=== PATIENT | female | born 1990 | race African-American/Black ===

== ENCOUNTER → 2016-10-30 | Emergency (ER) | payer MEDICAID ==
[~2016-10-30] MED LIST: BUTO1CRE PV; METR500T10 PO; POLY10O RIGHT EYE; PREN1CHW7 PO; VIST25CA PO
[2016-10-30 23:50] LABS: BLOOD, URINE NEG (NEG); COMMENT (UR) CULTURE INDICATED; CULTURE IF INDICATED CULTURE INDICATED; GLUCOSE,URINE NEG (NEG); KETONE, URINE 150 mg/dL (NEG); MUCUS URINE FEW /lpf (OCC); NITRITE,URINE NEG (NEG); SQUAMOUS EPITHELIAL CELL URINE 5 /hpf (0-5); TRIPLE PHOSPHATE CRYSTAL,URINE RARE /hpf; URINE COLOR YELLOW (YELLW/STRAW)
--- NOTE | 2016-10-31 00:05 | PD ---
HPI Chief Complaint Lower abdominal pain and urinary frequency Date Seen: October 30, 2016 Time Seen: 23:45 Travel History International Travel<30 Days: No Contact w/Intl Traveler<30Days: No Known Affected Area: No History of Present Illness HPI 25-year-old 3 para 1 AB 1 at 17 weeks by last menstrual period who presents with 3 days of lower abdominal pain and urinary frequency. She denies hematuria or dysuria. No vaginal discharge or bleeding. Para: 1 : 3 Miscarriage: 1 History Past Medical History Medical History: Denies Significant Hx Obstetric History Obstetric History One prior Past Surgical History Narrative Surgical Family History Family History: Negative Social History Alcohol Use: No Tobacco Use: Yes Substance Abuse: Yes (marijuana) Allergies-Medications (Allergen,Severity, Reaction): Coded Allergies: Lactose (Verified Adverse Reaction, Severe, 12/27/15) Home Meds Active Scripts Hydroxyzine Pamoate (Vistaril)25 Mg Cap25 Mg PO Q6HR #12 CAP FOR ITCHING Prov:Ailin Maya MD 12/27/15 Polymyxin/Trimethoprim (Polytrim Opth)10 Ml Soln1 Drop RIGHT EYE QID 7 Days Prov:Sarah Servin HEAD LOFT WORKER 12/07/15 Review of Systems Except as stated in HPI: all other systems reviewed are Neg Physical Exam Narrative GENERAL: Well-nourished, well-developed patient. SKIN: Warm and dry. HEAD: Normocephalic and atraumatic. EYES: No scleral icterus. No injection or drainage. ENT: No nasal drainage noted. Mucous membranes pink. Airway patent. NECK: Supple, trachea midline. No JVD. CARDIOVASCULAR: Regular rate and rhythm without murmurs, gallops, or rubs. RESPIRATORY: Breath sounds equal bilaterally. No accessory muscle use. ABDOMEN/GI: Abdomen soft, non-tender, bowel sounds present, no rebound, no guarding Gravid to [-] weeks size Fundal Height: [-] GENITOURINARY: FHT's: Category: [-] Baseline: [-140] Reactive: [-] Variability: [-] Decels: [-] EXTREMITIES: No cyanosis or edema. BACK: Nontender without obvious deformity. No CVA tenderness. NEUROLOGICAL: Awake and alert. Motor and sensory grossly within normal limits. Five out of 5 muscle strength in all muscle groups. Normal speech. Data Data Vital Signs Reviewed: Yes Orders Urinalysis - C+S If Indicated (10/30/16 23:14) Urine Culture (10/30/16 23:00) Labs Laboratory Tests Test 10/30/16 23:00 Urine Color YELLOW Urine Turbidity HAZY Urine pH 6.0 Urine Specific Larue 1.025 Urine Protein TRACE Urine Glucose (UA) NEG Urine Ketones 150 Urine Occult Blood NEG Urine Nitrite NEG Urine Bilirubin NEG Urine Urobilinogen 4.0 Urine Leukocyte Esterase LARGE Urine RBC 7 Urine WBC 16 Urine Squamous Epithelial 5 Cells Urine Triple Phosphate RARE Crystals Urine Mucus FEW Urine Yeast (Budding) RARE Microscopic Urinalysis Comment CULTURE INDICATED Date/Time Procedure Status Source Growth 10/30/16 23:00 Urine Culture Received Urine Clean Catch Pending MDM Medical Record Reviewed: No Narrative Course / MDM Assessment: 17 week intrauterine with probable UTI Plan: Empiric Macrobid for urinary tract infection with culture pending. [facility] was given to the patient to enroll in care as soon as possible. Diagnosis Diagnosis: Primary Impression: 17 weeks gestation of Additional Impression: Urinary tract infection Disposition: DISCHARGE HOME Joshua Peterson MD October 31, 2016 00:05
== END | disposition home or self-care (01) ==
LOC: HOBED 22:48
DX: O23.42 Unspecified infection of urinary tract in pregnancy, second trimester (principal); R10.30 Lower abdominal pain, unspecified; F12.90 Cannabis use, unspecified, uncomplicated; Z3A.17 17 weeks gestation of pregnancy; Z72.0 Tobacco use
CPT/HCPCS: 81001; 87086; 99282

== ENCOUNTER 2016-10-31 11:41 | Emergency (ER) | payer MEDICAID ==
[~2016-10-31 11:41] MED LIST changes: -BUTO1CRE PV; -METR500T10 PO; -PREN1CHW7 PO
[2016-10-31] MEDS ORDERED: LACTATED RINGER'S 1000 ML INJ 1,000 ML IV ONE (12:15)
[2016-10-31 12:28] LABS: HEMATOCRIT 30.3 % (35.0-46.0); MEAN CELL VOLUME 93.4 FL (80.0-100.0); MEAN CORPUSCULAR HEMOGLOBIN 31.9 PG (27.0-34.0); MEAN CORPUSCULAR HGB CONC 34.1 % (32.0-36.0); PLATELET COUNT 247 TH/MM3 (150-450); RED BLOOD COUNT 3.24 MIL/MM3 (4.00-5.30); RED CELL DISTRIBUTION WIDTH 12.5 % (11.6-17.2); REVIEW FLAG FINAL; WHITE BLOOD COUNT 7.7 TH/MM3 (4.0-11.0)
[2016-10-31 12:53] LABS: BLOOD, URINE NEG (NEG); COMMENT (UR) CULT NOT INDICATED; CULTURE IF INDICATED CULT NOT INDICATED; GLUCOSE,URINE NEG (NEG); KETONE, URINE 150 mg/dL (NEG); MUCUS URINE FEW /lpf (OCC); NITRITE,URINE NEG (NEG); PH, URINE 7.5 (5.0-8.5); SQUAMOUS EPITHELIAL CELL URINE 2 /hpf (0-5); URINE COLOR YELLOW (YELLW/STRAW)
[2016-10-31 12:54] LABS: AMPHETAMINE, URINE NEG (NEG); BARBITURATES, URINE NEG (NEG); COCAINE, URINE NEG (NEG)
[2016-10-31 12:58] LABS: BICARBONATE 25.2 MEQ/L (21.0-32.0); POTASSIUM 4.5 MEQ/L (3.5-5.1)
[2016-10-31] MEDS ORDERED: cefTRIAXone INJ 1,000 MG in SODIUM CHLORIDE 0.9% INJ 100 ML IV ONE (13:15)
--- NOTE | 2016-10-31 13:17 | PD ---
HPI Chief Complaint Right groin pain Date Seen: October 31, 2016 Time Seen: 12:10 Travel History International Travel<30 Days: No Contact w/Intl Traveler<30Days: No Known Affected Area: No History of Present Illness HPI 25-year-old who is 18 weeks 3 days comes in complaining of right lower quadrant pain deep in the pelvis radiating down to her groin. Patient was seen last night with a urinary tract infection and has not picked up her antibiotics at came in by [facility] last night and came in by [facility] again today. Patient denies fever denies urgency or frequency and denies abdominal pain. Patient has not yet initiated care. Para: 1 : 3 Miscarriage: 1 History Past Medical History Narrative Medical Urinary tract infections Anxiety and depression Obstetric History Obstetric History Spontaneous vaginal delivery Spontaneous miscarriage Past Surgical History Surgical History: No Previous Surgery Family History Family History: Negative Social History Alcohol Use: No Tobacco Use: No Substance Abuse: No Allergies-Medications (Allergen,Severity, Reaction): Coded Allergies: Lactose (Verified Adverse Reaction, Severe, 12/27/15) Home Meds Active Scripts Hydroxyzine Pamoate (Vistaril)25 Mg Cap25 Mg PO Q6HR #12 CAP FOR ITCHING Prov:Ailin Maya MD 12/27/15 Polymyxin/Trimethoprim (Polytrim Opth)10 Ml Soln1 Drop RIGHT EYE QID 7 Days Prov:Sarah Srevin 12/07/15 Review of Systems Except as stated in HPI: all other systems reviewed are Neg Physical Exam Narrative GENERAL: Well-nourished, well-developed patient. SKIN: Warm and dry. HEAD: Normocephalic and atraumatic. EYES: No scleral icterus. No injection or drainage. ENT: No nasal drainage noted. Mucous membranes pink. Airway patent. NECK: Supple, trachea midline. No JVD. CARDIOVASCULAR: Regular rate and rhythm without murmurs, gallops, or rubs. RESPIRATORY: Breath sounds equal bilaterally. No accessory muscle use. BREASTS: Bilateral exam showed no masses , no retractions, no nipple discharge. ABDOMEN/GI: Abdomen soft, minimal tenderness around the right inguinal ligament , bowel sounds present, no rebound, no guarding Gravid to [-18] weeks size Fundal Height: [-] GENITOURINARY: External Genitalia: intact and normal in appearance BUS glands: [Normal-] Cervix: [-Visually closed] no discharge noted vaginally Dilatation: [-] Effacement: [-] Station: [-] Presentation: [-] Membranes: [intact or ruptured] Uterine Contractions: [-Absent] FHT's: 152 by Doppler Category: [-] Baseline: [-] Reactive: [-] Variability: [-] Decels: [-] EXTREMITIES: No cyanosis or edema. BACK: Nontender without obvious deformity. No CVA tenderness. NEUROLOGICAL: Awake and alert. Motor and sensory grossly within normal limits. Five out of 5 muscle strength in all muscle groups. Normal speech. Data Data Orders Vital Signs (Adult) .ON ADMISSION (10/31/16 12:10) ^ Labor Status (10/31/16 12:10) Urinalysis - C+S If Indicated (10/31/16 12:10) Diet Liquid (10/31/16 Lunch) Cbc No Diff, Includes Plts (10/31/16 12:10) Basic Metabolic Panel (Bmp) (10/31/16 12:10) Ceftriaxone Inj (Rocephin Inj) (10/31/16 13:15) Drug Screen, Random Urine (10/31/16 12:10) Lactated Ringer's 1000 Ml Inj (Lr 1000 M (10/31/16 12:15) Labs Laboratory Tests Test 10/31/16 10/31/16 10/31/16 12:10 12:12 12:25 White Blood Count 7.7 Red Blood Count 3.24 Hemoglobin 10.3 Hematocrit 30.3 Mean Corpuscular Volume 93.4 Mean Corpuscular Hemoglobin 31.9 Mean Corpuscular Hemoglobin 34.1 Concent Red Cell Distribution Width 12.5 Platelet Count 247 Mean Platelet Volume 7.3 Urine Color YELLOW Urine Turbidity HAZY Urine pH 7.5 Urine Specific Tatums 1.017 Urine Protein TRACE Urine Glucose (UA) NEG Urine Ketones 150 Urine Occult Blood NEG Urine Nitrite NEG Urine Bilirubin NEG Urine Urobilinogen 2.0 Urine Leukocyte Esterase MOD Urine RBC 1 Urine WBC 3 Urine Squamous Epithelial 2 Cells Urine Mucus FEW Urine Trichomonas RARE Microscopic Urinalysis Comment CULT NOT INDICATED Urine Opiates Screen NEG Urine Barbiturates Screen NEG Urine Amphetamines Screen NEG Urine Benzodiazepines Screen NEG Urine Cocaine Screen NEG Urine Cannabinoids Screen POS Sodium Level 137 Potassium Level 4.5 Chloride Level 104 Carbon Dioxide Level 25.2 Anion Gap 8 Blood Urea Nitrogen 4 Creatinine 0.48 Estimat Glomerular Filtration 194 Rate Random Glucose 68 Calcium Level 8.9 MDM Medical Record Reviewed: Yes Plan 25-year-old female , has come to the hospital twice by [facility] in the past 4 hours but her examination is benign Agree with treatment for urinary tract infection and given her possible lack of transportation I have given her a stable dose of Rocephin 1 g here but she still needs to last picker her Macrobid and finished the dose Patient was given referral to the clinic to initiate care Patient has taken [facility] here to the hospital almost 14 times in the past 18 months, this patient which really benefit from consistent care, counseling, information, and support Diagnosis Diagnosis: Primary Impression: 17 weeks gestation of Additional Impression: Urinary tract infection during in second trimester, antepartum Disposition: 01 DISCHARGE HOME Farideh Acuna MD October 31, 2016 13:17
[2016-11-22] MEDS ORDERED: METR500T10 PO (15:16)
[2016-11-22] MEDS ORDERED: BUTO1CRE PV (15:16)
[2016-11-29] MEDS ORDERED: PREN1CHW7 PO (15:04)
== END 2016-10-31 13:47 | disposition home or self-care (01) ==
LOC: HOBED 11:41
DX: O23.42 Unspecified infection of urinary tract in pregnancy, second trimester (principal); Z3A.17 17 weeks gestation of pregnancy
CPT/HCPCS: 80048; 80307; 81001; 85027; 96374; 99284; J0696; J7120

== ENCOUNTER 2016-12-14 21:01 | Emergency (ER) | payer MEDICAID ==
[~2016-12-14 21:01] MED LIST changes: +BUTO1CRE PV; +METR500T10 PO; -POLY10O RIGHT EYE; +PREN1CHW7 PO; -VIST25CA PO
[2016-12-14] MEDS ORDERED: BUTA1CAP PO (21:46)
--- NOTE | 2016-12-14 21:46 | PD ---
HPI Chief Complaint Migraine headache Date Seen: Dec 14, 2016 Travel History International Travel<30 Days: No Contact w/Intl Traveler<30Days: No Known Affected Area: No History of Present Illness HPI 26-year-old black female at 24 weeks previous now complains of migraine headache all day, she has a history of migraine headaches the past and is taking NSAIDs for those, she is taken nothing while , she denies pain in the abdomen leakage of fluid or bleeding. Baby is active. heart rate tracing is reactive. No contractions seen Para: 1 : 2 History Past Medical History Narrative Medical Migraines Obstetric History Obstetric History 1 in the past Past Surgical History Narrative Surgical 1 Social History Alcohol Use: No Tobacco Use: No Substance Abuse: No Allergies-Medications (Allergen,Severity, Reaction): Coded Allergies: Lactose (Verified Adverse Reaction, Severe, 11/29/16) Home Meds Active Scripts Vit W/ Ferric Phospha (Vitafol Gummies 3.33-0.333-34.8 mg)1 Chw Chw3.33 Chew PO DAILY #60 CHEW Ref 1 Prov:Ellie Agarwal 11/29/16 Butoconazole Nitrate (One Dose (Gynazole-1)2 % Cre1 Applic PV HS #1 APPL Prov:Jaja Hickey 11/22/16 Metronidazole 500 Mg [id number] Mg PO BID #14 TAB Ref 0 Prov:Jaja Hickey 11/22/16 Review of Systems General / Constitutional: No: Fever, Weight Gain, Chills, Other Eyes: No: Diploplia, Blurred Vision, Visual changes, Pain, Photophobia HENT: No: Headaches, Vertigo, Lightheadedness Cardiovascular: No: Irregular Rhythm, Chest Pain or Discomfort, Palpitations, Tachycardia, Syncope, Varicosities, Edema, Cyanosis Respiratory: No: Cough, Short of Breath, Other Gastrointestinal: Nausea, No: Vomiting, Diarrhea Genitourinary: No: Decreased Urinary Output, Oliguria Musculoskeletal: No: Limited ROM, Weakness, Cramping, Edema, Pain Skin: No Rash, No Itching, No Dryness, No Lumps, No Change in Pigmentation, No Change in Nails, No Alopecia, No Lesions Neurologic: Headache, No: Weakness, Dizziness, Syncope, Focal Abnormalities, Coordination Problem, Slurred Speech, Seizures Psychiatric: No: Depression, Suicidal Ideations, Homicidal Ideation Endocrine: No: Heat Intolerance, Cold Intolerance, Polydipsia, Polyuria, Other Physical Exam Narrative GENERAL: Well-nourished, well-developed patient. SKIN: Warm and dry. HEAD: Normocephalic and atraumatic. EYES: No scleral icterus. No injection or drainage. PERRLA ENT: No nasal drainage noted. Mucous membranes pink. Airway patent. NECK: Supple, trachea midline. No JVD. CARDIOVASCULAR: Regular rate and rhythm without murmurs, gallops, or rubs. RESPIRATORY: Breath sounds equal bilaterally. No accessory muscle use. BREASTS: Bilateral exam showed no masses , no retractions, no nipple discharge. ABDOMEN/GI: Abdomen soft, non-tender, bowel sounds present, no rebound, no guarding Gravid to [24-] weeks size Fundal Height: [24-] Membranes: [intact ] Uterine Contractions: [none-] FHT's: Category: [-1] Baseline: [-133] Reactive: [-yes] Variability: [mod-] Decels: [-none] EXTREMITIES: No cyanosis or edema. BACK: Nontender without obvious deformity. No CVA tenderness. NEUROLOGICAL: Awake and alert. Motor and sensory grossly within normal limits. Five out of 5 muscle strength in all muscle groups. Normal speech. MDM Interpretation(s) 26-year-old white female at 24 weeks previous now with migraine headache all day and is taken nothing for it. She has no other complaints problems baby is active no bleeding leakage or contractions, heart rate tracing is reactive, no contractions seen Plan Planning of the patient IM shot of Demerol Phenergan 50 mg / 25 mg and a prescription for Fioricet for headache pain at home, she was instructed to take her medication and essentially she starts to feel a headache coming on and not letting to bad at all possible drink plenty of fluids stay hydrated and stay in the darkroom or quiet place to let the [headache improved Diagnosis Diagnosis: Primary Impression: 24 weeks gestation of Additional Impression: Migraine Disposition: 01 DISCHARGE HOME Condition: Stable Scripts Kzxwkixges-Xsmvowjtifovl-Xdsohuqs (Fioricet)50-300-40 Mg Cap1-2 Cap PO Q6H PRN ( HEADACHE) #20 CAP Ref 0 Prov:Kevin Sutton II, MD 12/14/16 Kevin Sutton II, MD Dec 14, 2016 21:46
[2016-12-14] MEDS ORDERED: MEPERIDINE HCL 50 MG/ML VIAL IM ONE (22:00)
[2016-12-14] MEDS ORDERED: PROMETHAZINE INJ 25 MG/ML VIAL IM ONE (22:00)
== END 2016-12-14 22:19 | disposition home or self-care (01) ==
LOC: HOBED 21:01
DX: O26.892 Other specified pregnancy related conditions, second trimester (principal); G43.909 Migraine, unspecified, not intractable, without status migrainosus; Z3A.24 24 weeks gestation of pregnancy
CPT/HCPCS: 96372; 99284; J2175; J2550

== ENCOUNTER 2016-12-31 01:28 | Emergency (ER) | payer MEDICAID ==
[~2016-12-31 01:28] MED LIST changes: +BUTA1CAP PO
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
== END 2016-12-31 03:58 | disposition home or self-care (01) ==
LOC: HOBED 01:28
DX: O9A.212 Injury, poisoning and certain other consequences of external causes complicating pregnancy, second trimester (principal); S39.91XA Unspecified injury of abdomen, initial encounter; Z3A.26 26 weeks gestation of pregnancy; W20.8XXA Other cause of strike by thrown, projected or falling object, initial encounter
CPT/HCPCS: 99284

== ENCOUNTER 2017-01-05 13:46 | Emergency (ER) | payer MEDICAID ==
--- NOTE | 2017-01-05 18:43 | PD ---
HPI Chief Complaint lower abdominal pain Date Seen: Jan 05, 2017 Travel History International Travel<30 Days: No Contact w/Intl Traveler<30Days: No Known Affected Area: No History of Present Illness HPI 26y/o at 27w3d who presented to the [facility] with reports of lower abdominal pain since yesterday evening. The pain was initially in the prior c/ s scar, which resolved after IVF. Pain is now near the umbilicus, no nausea/ vomiting. Last meal was at 11am, pt is requesting food. She denies vaginal bleeding or leakage of fluid with reports of active movements. care at [facility], care complicated by: 1. Previous c/s Para: 1 : 3 History Past Medical History Medical History: Denies Significant Hx Obstetric History Obstetric History 07/12/08 38w4d Primary c/s due to "poor pelvis," Male 7lb5oz Past Surgical History Narrative Surgical C/s as above Family History Family History: Negative Social History Alcohol Use: No Tobacco Use: No Substance Abuse: No Allergies-Medications (Allergen,Severity, Reaction): Coded Allergies: Lactose (Verified Adverse Reaction, Severe, 12/29/16) Home Meds Active Scripts Fgkeorwjvh-Kbvmzdowtivuf-Efuxlnvs (Fioricet)50-300-40 Mg Cap1-2 Cap PO Q6H PRN ( HEADACHE) #20 CAP Ref 0 Prov:Kevin Sutton II, MD 12/14/16 Vit W/ Ferric Phospha (Vitafol Gummies 3.33-0.333-34.8 mg)1 Chw Chw3.33 Chew PO DAILY #60 CHEW Ref 1 Prov:Ellie Agarwal 11/29/16 Butoconazole Nitrate (One Dose (Gynazole-1)2 % Cre1 Applic PV HS #1 APPL Prov:Jaja Hickey 11/22/16 Metronidazole 500 Mg [id number] Mg PO BID #14 TAB Ref 0 Prov:Jaja Hickey 11/22/16 Review of Systems Except as stated in HPI: all other systems reviewed are Neg Physical Exam Narrative GENERAL: Well-nourished, well-developed patient. SKIN: Warm and dry. HEAD: Normocephalic and atraumatic. EYES: No scleral icterus. No injection or drainage. ENT: No nasal drainage noted. Mucous membranes pink. Airway patent. NECK: Supple, trachea midline. No JVD. CARDIOVASCULAR: Regular rate and rhythm without murmurs, gallops, or rubs. RESPIRATORY: Breath sounds equal bilaterally. No accessory muscle use. BREASTS: Bilateral exam showed no masses , no retractions, no nipple discharge. ABDOMEN/GI: Abdomen soft, tender to palpation just near the umbilicus, bowel sounds present, no rebound, no guarding Gravid to 27 weeks size GENITOURINARY: External Genitalia: intact and normal in appearance VE deferred Uterine Contractions: irritability which resolved with IVF FHT's: Category: appropriate for gestational age EXTREMITIES: No cyanosis or edema. BACK: Nontender without obvious deformity. No CVA tenderness. NEUROLOGICAL: Awake and alert. Motor and sensory grossly within normal limits. Five out of 5 muscle strength in all muscle groups. Normal speech. Data Data Vital Signs Reviewed: Yes Orders Us Ob Repeat/Fu(Growth) (01/05/17 ) MDM Medical Record Reviewed: No Narrative Course / MDM 26y/o at 27w3d Plan -d/c home -f/u for routine care Diagnosis Diagnosis: Primary Impression: 24 weeks gestation of Additional Impression: Abdominal pain affecting , antepartum Disposition: 01 DISCHARGE HOME Condition: Good Juli Cortez MD Jan 05, 2017 18:43
== END 2017-01-05 19:02 | disposition home or self-care (01) ==
LOC: HOBED 13:50
DX: O26.892 Other specified pregnancy related conditions, second trimester (principal); R10.30 Lower abdominal pain, unspecified; Z3A.27 27 weeks gestation of pregnancy
CPT/HCPCS: 76816; 76817; 99284

== ENCOUNTER 2017-01-08 22:21 | Emergency (ER) | payer MEDICAID ==
--- NOTE | 2017-01-08 23:17 | PD ---
HPI Chief Complaint Patient complains of headache and migraine , contractions and urinary frequency Date Seen: Jan 08, 2017 Travel History International Travel<30 Days: No Contact w/Intl Traveler<30Days: No Known Affected Area: No History of Present Illness HPI Patient is 26-year-old black female previous 1 now at 28 weeks tomorrow who [facility] but [facility] who presents presents here very frequently for evaluation of numerous problems, tinnitus complaining of headache contractions urinary frequency, denies bleeding or leakage of fluid no contractions noted on the monitor on a regular basis, heart rate tracing is reactive for 28 weeks. The patient's been here many times she is seen by me in the last month twice in that month we have given her some prescriptions for Fioricet twice, given her shot of fentanyl for pain and given her shot of Demerol for pain in the past Para: 1 : 3 History Obstetric History Obstetric History 1 and 1 early loss Past Surgical History Narrative Surgical Social History Alcohol Use: No Tobacco Use: No Substance Abuse: No Allergies-Medications (Allergen,Severity, Reaction): Coded Allergies: Lactose (Verified Adverse Reaction, Severe, 12/29/16) Home Meds Active Scripts Folswrcokc-Muvhdwylzlpey-Snnsjfsx (Fioricet)50-300-40 Mg Cap1-2 Cap PO Q6H PRN ( HEADACHE) #20 CAP Ref 0 Prov:Kevin Sutton II, MD 12/14/16 Vit W/ Ferric Phospha (Vitafol Gummies 3.33-0.333-34.8 mg)1 Chw Chw3.33 Chew PO DAILY #60 CHEW Ref 1 Prov:Ellie Agarwal 11/29/16 Butoconazole Nitrate (One Dose (Gynazole-1)2 % Cre1 Applic PV HS #1 APPL Prov:Jaja Hickey 11/22/16 Metronidazole 500 Mg Fle589 Mg PO BID #14 TAB Ref 0 Prov:Jaja Hickey 11/22/16 Review of Systems General / Constitutional: No: Fever, Weight Gain, Chills, Other Eyes: No: Diploplia, Blurred Vision, Visual changes, Pain, Photophobia HENT: Headaches, No: Vertigo, Lightheadedness Cardiovascular: No: Irregular Rhythm, Chest Pain or Discomfort, Palpitations, Tachycardia, Syncope, Varicosities, Edema, Cyanosis Respiratory: No: Cough, Short of Breath, Other Gastrointestinal: Abdominal Pain, No: Nausea, Vomiting, Diarrhea Genitourinary: Urgency, Frequency, No: Decreased Urinary Output, Oliguria Musculoskeletal: No: Limited ROM, Weakness, Cramping, Edema, Pain Skin: No Rash, No Itching, No Dryness, No Lumps, No Change in Pigmentation, No Change in Nails, No Alopecia, No Lesions Neurologic: No: Weakness, Dizziness, Syncope, Focal Abnormalities, Coordination Problem, Headache, Slurred Speech, Seizures Psychiatric: No: Depression, Suicidal Ideations, Homicidal Ideation Endocrine: No: Heat Intolerance, Cold Intolerance, Polydipsia, Polyuria, Other Physical Exam Narrative GENERAL: Well-nourished, well-developed patient. SKIN: Warm and dry. HEAD: Normocephalic and atraumatic. EYES: No scleral icterus. No injection or drainage. ENT: No nasal drainage noted. Mucous membranes pink. Airway patent. NECK: Supple, trachea midline. No JVD. CARDIOVASCULAR: Regular rate and rhythm without murmurs, gallops, or rubs. RESPIRATORY: Breath sounds equal bilaterally. No accessory muscle use. BREASTS: Bilateral exam showed no masses , no retractions, no nipple discharge. ABDOMEN/GI: Abdomen soft, 1+-tender, bowel sounds present, no rebound, no guarding Gravid to [28-] weeks size Fundal Height: [28-] GENITOURINARY: External Genitalia: intact and normal in appearance BUS glands: [-] Cervix: [-Closed] Dilatation: [Closed-] Effacement: [-] Thick Station: [-3] Membranes: [intact ] Uterine Contractions: [no reg-] FHT's: Category: [1-] Baseline: [-133] Reactive: [-yes] Variability: [-mod] Decels: [none-] EXTREMITIES: No cyanosis or edema. BACK: Nontender without obvious deformity. No CVA tenderness. NEUROLOGICAL: Awake and alert. Motor and sensory grossly within normal limits. Five out of 5 muscle strength in all muscle groups. Normal speech. Data Data Orders Vital Signs (Adult) .ON ADMISSION (01/08/17 22:56) ^ Labor Status (01/08/17 22:56) Urinalysis - C+S If Indicated (01/08/17 22:56) Labs UA [in lab] negative MDM Interpretation(s) Patient 26-year-old white female previous 1 at 28 weeks tomorrow who presents frequently here for various complaints with tonight comes in for headache and migraine some contractions urinary frequency. UA was sent down the lab and is negative ,. heart rate tracing is reactive she's having no contractions on a regular basis cervix is closed and posterior thick Plan Patient's been given prescriptions for Fioricet twice in the past as several visits she's received IM pain medications. Tonight plan to discharge the patient home to bedrest Tylenol heating pad or hot bath for comfort and follow- up with her OB provider Diagnosis Diagnosis: Primary Impression: 27 weeks gestation of Additional Impressions: Headache Abdominal pain during in second trimester Disposition: 01 DISCHARGE HOME Condition: Stable Scripts Tpbxochaom-Tphbxydcmqkrl-Qzreenko (Fioricet)50-300-40 Mg Cap1-2 Cap PO Q6H PRN ( HEADACHE) #30 CAP Ref 0 Prov:Kevin Sutton II, MD 01/08/17 Imworamusf-Hnjmknetrxvkg-Iswiqjtr (Fioricet)50-300-40 Mg Cap1-2 Cap PO Q6H PRN ( HEADACHE) #20 CAP Ref 0 Prov:Kevin Sutton II, MD 01/08/17 Kevin Sutton II, MD Jan 08, 2017 23:17
[2017-01-08 23:18] LABS: BACTERIA, URINE RARE /hpf; BLOOD, URINE TRACE (NEG); CALCIUM OXALATE CRYSTALS,URINE RARE /hpf; GLUCOSE,URINE NEG (NEG); KETONE, URINE NEG (NEG); MUCUS URINE FEW /lpf (OCC); NITRITE,URINE NEG (NEG); PH, URINE 6.5 (5.0-8.5); SQUAMOUS EPITHELIAL CELL URINE 2 /hpf (0-5); URINE COLOR YELLOW (YELLW/STRAW)
[2017-01-08 23:19] LABS: COMMENT (UR) CULT NOT INDICATED; CULTURE IF INDICATED CULT NOT INDICATED
[2017-01-08] MEDS ORDERED: BUTA1CAP PO (23:41)
[2017-01-31] MEDS ORDERED: METR500T10 PO (16:20)
[2017-02-28] MEDS ORDERED: METR500T10 PO (08:42)
[2017-02-28] MEDS ORDERED: TERC0.8C VAGINAL (08:42)
[2017-03-18] MEDS ORDERED: AMPI500C8 PO (11:43)
[2017-03-23] MEDS ORDERED: AMPI500C8 PO (15:33)
== END 2017-01-08 23:51 | disposition home or self-care (01) ==
LOC: EDBD → HOBED 22:21
DX: O26.892 Other specified pregnancy related conditions, second trimester (principal); R51 Headache; R10.9 Unspecified abdominal pain; Z3A.27 27 weeks gestation of pregnancy
CPT/HCPCS: 81001; 99284

== ENCOUNTER 2017-01-29 00:07 | Emergency (ER) | payer MEDICAID ==
[~2017-01-29 00:07] MED LIST changes: -BUTO1CRE PV; -METR500T10 PO
--- NOTE | 2017-01-29 00:50 | PD ---
HPI Chief Complaint Contractions Date Seen: Jan 29, 2017 Time Seen: 00:20 Travel History International Travel<30 Days: No Contact w/Intl Traveler<30Days: No Known Affected Area: No History of Present Illness HPI 26-year-old 3 para 1 AB 1 at 30 weeks gestation who presents with feeling like she is having contractions over the past 1 hour. She states that she ate approximately 11 PM and felt like contractions were getting worse so she came in by ambulance. She denies leakage of fluid, bleeding is movement. No recent intercourse. Weeks Gestation: 30 Para: 1 : 3 Miscarriage: 1 History Past Medical History Medical History: Denies Significant Hx Obstetric History Obstetric History First resulted in at term 1 SAB Current enrolled at [facility]. Past Surgical History Narrative Surgical Family History Family History: Negative Social History Alcohol Use: No Tobacco Use: No Substance Abuse: No Allergies-Medications (Allergen,Severity, Reaction): Coded Allergies: lactose (Unverified Adverse Reaction, Severe, 01/27/17) Home Meds Active Scripts Bvqyplnkkg-Yccwtpsyvzzfb-Xyvhxclm (Fioricet) 50-300-40 Mg Cap, 1-2 CAP PO Q6H Y for HEADACHE, #30 CAP 0 Refills Prov:Kevin Sutton II, MD 01/08/17 Ebobhzremk-Crsmzppzbbtqj-Mnwbcmsv (Fioricet) 50-300-40 Mg Cap, 1-2 CAP PO Q6H Y for HEADACHE, #20 CAP 0 Refills Prov:Kevin Sutton II, MD 01/08/17 Vit W/ Ferric Phospha (Vitafol Gummies 3.33-0.333-34.8 mg) 1 Chw Chw, 3.33 CHEW PO DAILY, #60 CHEW 1 Refill Prov:Ellie Agarwal 11/29/16 Review of Systems Except as stated in HPI: all other systems reviewed are Neg Physical Exam Narrative GENERAL: Well-nourished, well-developed patient. SKIN: Warm and dry. HEAD: Normocephalic and atraumatic. EYES: No scleral icterus. No injection or drainage. ENT: No nasal drainage noted. Mucous membranes pink. Airway patent. NECK: Supple, trachea midline. No JVD. CARDIOVASCULAR: Regular rate and rhythm without murmurs, gallops, or rubs. RESPIRATORY: Breath sounds equal bilaterally. No accessory muscle use. ABDOMEN/GI: Abdomen soft, non-tender, bowel sounds present, no rebound, no guarding Gravid to [-] weeks size Fundal Height: [-] GENITOURINARY: External Genitalia: intact and normal in appearance BUS glands: [-] Cervix: [-] Dilatation: [-Closed] Effacement: [Long-] Station: [-High] Presentation: [-] Membranes: [intact] Uterine Contractions: [Rare mild-] FHT's: Category: [-] Baseline: [-] Reactive: [Yes-] Variability: [-] Decels: [-] EXTREMITIES: No cyanosis or edema. BACK: Nontender without obvious deformity. No CVA tenderness. NEUROLOGICAL: Awake and alert. Motor and sensory grossly within normal limits. Five out of 5 muscle strength in all muscle groups. Normal speech. Assessment: 30 week intrauterine with probable UTI, negative fibronectin and nonthreatening cervical examination. Plan: Urinalysis and culture, Macrobid twice daily for 5 days empirically. labor precautions were reviewed with the patient. Data Data Orders Orders Vital Signs (Adult) .ON ADMISSION (01/29/17 00:41) ^ Labor Status (01/29/17 00:41) Urinalysis - C+S If Indicated (01/29/17 00:41) Fibronectin (01/29/17 00:41) MDM Medical Record Reviewed: Yes Diagnosis Diagnosis: Primary Impression: 30 weeks gestation of Additional Impression: Urinary tract infection during in third trimester, antepartum Disposition: DISCHARGE HOME Condition: Good Joshua Peterson MD Jan 29, 2017 00:50
[2017-01-29 01:20] LABS: BLOOD, URINE SMALL (NEG); CALCIUM OXALATE CRYSTALS,URINE FEW /hpf; COMMENT (UR) CULTURE INDICATED; CULTURE IF INDICATED CULTURE INDICATED; GLUCOSE,URINE 70 mg/dL (NEG); KETONE, URINE NEG (NEG); MUCUS URINE FEW /lpf (OCC); NITRITE,URINE NEG (NEG); SQUAMOUS EPITHELIAL CELL URINE 2 /hpf (0-5); URINE COLOR YELLOW (YELLW/STRAW)
[2017-01-31] MEDS ORDERED: METR500T10 PO (16:20)
[2017-02-28] MEDS ORDERED: METR500T10 PO (08:42)
[2017-02-28] MEDS ORDERED: TERC0.8C VAGINAL (08:42)
[2017-03-18] MEDS ORDERED: AMPI500C8 PO (11:43)
[2017-03-23] MEDS ORDERED: AMPI500C8 PO (15:33)
== END 2017-01-29 03:21 | disposition home or self-care (01) ==
LOC: EDBD → HOBED 00:07
DX: O23.43 Unspecified infection of urinary tract in pregnancy, third trimester (principal); Z3A.30 30 weeks gestation of pregnancy
CPT/HCPCS: 81001; 82731; 87086; 99283

== ENCOUNTER 2017-02-09 04:43 | Emergency (ER) | payer MEDICAID ==
[~2017-02-09] VITALS: Ht 154.9 cm; Wt 58.5 kg
[~2017-02-09 04:43] MED LIST changes: +METR500T10 PO
[2017-02-09] MEDS ORDERED: BENA25CA4 PO (05:17)
--- NOTE | 2017-02-09 05:41 | PD ---
HPI Chief Complaint acid reflux, abdominal pain, restlessness, and some depression Date Seen: Feb 09, 2017 Time Seen: 05:35 Travel History International Travel<30 Days: No Contact w/Intl Traveler<30Days: No Known Affected Area: No History of Present Illness HPI 26-year-old who is at 32 weeks 3 days comes in complaining of a variety of different symptoms. Patient has on and off acid reflux that she has not discussed taking any bgup-tyv-flebspt medications with her provider. Patient's left lower quadrant pain which radiates over to the right side. Patient also complains of some depression but also has not discussed this with her provider. Denies vaginal bleeding or vaginal discharge. Weeks Gestation: 32 Para: 1 : 3 History Past Medical History Medical History: Denies Significant Hx Obstetric History Obstetric History section 1 Past Surgical History Narrative Surgical Family History Family History: Negative Social History Alcohol Use: No Tobacco Use: No Substance Abuse: Yes Allergies-Medications (Allergen,Severity, Reaction): Coded Allergies: lactose (Unverified Adverse Reaction, Severe, 02/09/17) Home Meds Active Scripts Lwoyekacwz-Komjohuosjpeb-Akpixyoq (Fioricet) 50-300-40 Mg Cap, 1-2 CAP PO Q6H Y for HEADACHE, #20 CAP 0 Refills Prov:Kevin Sutton II, MD 01/08/17 Vit W/ Ferric Phospha (Vitafol Gummies 3.33-0.333-34.8 mg) 1 Chw Chw, 3.33 CHEW PO DAILY, #60 CHEW 1 Refill Prov:Ellie Agarwal 11/29/16 Reported Medications Diphenhydramine HCl (Benadryl Allergy) 25 Mg Cap, 1 CAP PO DIRECTED 02/09/17 Discontinued Scripts Metronidazole (Metronidazole) 500 Mg Tab, 500 MG PO BID for Infection, #14 TAB 0 Refills Prov:Jaja Hickey 01/31/17 Hxsrrxfnvg-Olrvzxqkicsbt-Ymwxtmdg (Fioricet) 50-300-40 Mg Cap, 1-2 CAP PO Q6H Y for HEADACHE, #30 CAP 0 Refills Prov:Kevin Sutton II, MD 01/08/17 Review of Systems Except as stated in HPI: all other systems reviewed are Neg Physical Exam Narrative GENERAL: Well-nourished, well-developed patient. SKIN: Warm and dry. HEAD: Normocephalic and atraumatic. EYES: No scleral icterus. No injection or drainage. ENT: No nasal drainage noted. Mucous membranes pink. Airway patent. NECK: Supple, trachea midline. No JVD. CARDIOVASCULAR: Regular rate and rhythm without murmurs, gallops, or rubs. RESPIRATORY: Breath sounds equal bilaterally. No accessory muscle use. BREASTS: Bilateral exam showed no masses , no retractions, no nipple discharge. ABDOMEN/GI: Abdomen soft, non-tender, bowel sounds present, no rebound, no guarding. Mild pain with movement of gravid uterus. Gravid to [-32] weeks size Fundal Height: [-] GENITOURINARY: External Genitalia: intact and normal in appearance BUS glands: [Normal-] Cervix: [-Posterior] Dilatation: [-Closed] Effacement: [-Long] Station: [-High] Presentation: [-Vertex] Membranes: [intact] Uterine Contractions: [-Patient had a single contraction since she arrived here] FHT's: Category: [1] Baseline: [140-] Reactive: [-mod] Variability: [-mod] Decels: [-absent] EXTREMITIES: No cyanosis or edema. BACK: Nontender without obvious deformity. No CVA tenderness. NEUROLOGICAL: Awake and alert. Motor and sensory grossly within normal limits. Five out of 5 muscle strength in all muscle groups. Normal speech. Data Data Vital Signs Reviewed: Yes MDM Medical Record Reviewed: Yes Plan 26yo at 32-33 weeks gestation with lower pelvic discomfort mostly musculoskeletal Urine dip negative for leukocyte esterase and bacteria Patient has appt with the office and will discuss acid reflux and depression and medication Diagnosis Diagnosis: Primary Impression: 32 weeks gestation of Additional Impression: Epigastric abdominal pain of unknown etiology Disposition: 01 DISCHARGE HOME Farideh Acuna MD Feb 09, 2017 05:40
[2017-02-28] MEDS ORDERED: TERC0.8C VAGINAL (08:42)
[2017-02-28] MEDS ORDERED: METR500T10 PO (08:42)
[2017-03-18] MEDS ORDERED: AMPI500C8 PO (11:43)
[2017-03-23] MEDS ORDERED: AMPI500C8 PO (15:33)
== END 2017-02-09 05:50 | disposition home or self-care (01) ==
LOC: EDBD → HOBED 04:43
DX: O26.893 Other specified pregnancy related conditions, third trimester (principal); R10.13 Epigastric pain; K21.9 Gastro-esophageal reflux disease without esophagitis; Z3A.32 32 weeks gestation of pregnancy
CPT/HCPCS: 99283

== ENCOUNTER 2017-03-04 12:28 | Emergency (ER) | payer MEDICAID ==
[~2017-03-04] VITALS: Ht 154.9 cm; Wt 61.2 kg
[~2017-03-04 12:28] MED LIST changes: +BENA25CA4 PO; +TERC0.8C VAGINAL
--- NOTE | 2017-03-04 12:51 | PD ---
HPI Chief Complaint Abdominal pain what she describes as stretching of her old scar causing pain Travel History International Travel<30 Days: No Contact w/Intl Traveler<30Days: No Known Affected Area: No History of Present Illness HPI , Patient is 26-year-old black female previous at 35-36 weeks [facility] and presents combining of lower abdominal pain is stretching of her scars what she describes it denies bleeding or leakage of fluid baby is active heart rate tracing is reactive she is not zi regularly if this time, baby is known to be breech for several months now and is still breech on exam Weeks Gestation: 35 Para: 1 : 3 Last Menstrual Period: Mar 04, 2017 Miscarriage: 1 History Obstetric History Obstetric History 1 Past Surgical History Narrative Surgical 1 Social History Alcohol Use: No Tobacco Use: No Substance Abuse: No Allergies-Medications (Allergen,Severity, Reaction): Coded Allergies: lactose (Unverified Adverse Reaction, Severe, 02/23/17) Home Meds Active Scripts Terconazole Vaginal Cream (Terconazole Vaginal Cream) 0.8 % Cream, 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 Prov:Ellie Agarwal 02/28/17 Metronidazole (Metronidazole) 500 Mg Tab, 500 MG PO ONCE for Infection, #4 TAB 0 Refills 2 grams as single dose Prov:Ellie Agarwal 02/28/17 Rruuaoknpe-Xwfgojsalisej-Pfyygwah (Fioricet) 50-300-40 Mg Cap, 1-2 CAP PO Q6H Y for HEADACHE, #20 CAP 0 Refills Prov:Kevin Sutton II, MD 01/08/17 Vit W/ Ferric Phospha (Vitafol Gummies 3.33-0.333-34.8 mg) 1 Chw Chw, 3.33 CHEW PO DAILY, #60 CHEW 1 Refill Prov:Ellie Agarwal 11/29/16 Reported Medications Diphenhydramine HCl (Benadryl Allergy) 25 Mg Cap, 1 CAP PO DIRECTED 02/09/17 Review of Systems General / Constitutional: No: Fever, Weight Gain, Chills, Other Eyes: No: Diploplia, Blurred Vision, Visual changes, Pain, Photophobia HENT: No: Headaches, Vertigo, Lightheadedness Cardiovascular: No: Irregular Rhythm, Chest Pain or Discomfort, Palpitations, Tachycardia, Syncope, Varicosities, Edema, Cyanosis Respiratory: No: Cough, Short of Breath, Other Gastrointestinal: Abdominal Pain, No: Nausea, Vomiting, Diarrhea Genitourinary: No: Decreased Urinary Output, Oliguria Musculoskeletal: No: Limited ROM, Weakness, Cramping, Edema, Pain Skin: No Rash, No Itching, No Dryness, No Lumps, No Change in Pigmentation, No Change in Nails, No Alopecia, No Lesions Neurologic: No: Weakness, Dizziness, Syncope, Focal Abnormalities, Coordination Problem, Headache, Slurred Speech, Seizures Psychiatric: No: Depression, Suicidal Ideations, Homicidal Ideation Endocrine: No: Heat Intolerance, Cold Intolerance, Polydipsia, Polyuria, Other Physical Exam Narrative GENERAL: Well-nourished, well-developed patient. SKIN: Warm and dry. HEAD: Normocephalic and atraumatic. EYES: No scleral icterus. No injection or drainage. ENT: No nasal drainage noted. Mucous membranes pink. Airway patent. NECK: Supple, trachea midline. No JVD. CARDIOVASCULAR: Regular rate and rhythm without murmurs, gallops, or rubs. RESPIRATORY: Breath sounds equal bilaterally. No accessory muscle use. BREASTS: Bilateral exam showed no masses , no retractions, no nipple discharge. ABDOMEN/GI: Abdomen soft, non-tender, bowel sounds present, no rebound, no guarding Gravid to [35-] weeks size Fundal Height: [35-] GENITOURINARY: External Genitalia: intact and normal in appearance BUS glands: [-] Cervix: [-] Dilatation: [0-] Effacement: [-0] Station: [-3] Presentation: [-breech] Membranes: [intact ] Uterine Contractions: [-none] FHT's: Category: [-1] Baseline: [-133] Reactive: [-yes] Variability: [mod-] Decels: [-none] EXTREMITIES: No cyanosis or edema. BACK: Nontender without obvious deformity. No CVA tenderness. NEUROLOGICAL: Awake and alert. Motor and sensory grossly within normal limits. Five out of 5 muscle strength in all muscle groups. Normal speech. MDM Interpretation(s) Patient 26-year-old black female previous now 35-36 weeks with a breech fetus. The specifically lower abdominal pain and what she describes as stretching pain around her old scar and she was told by her doctor to come in. [facility] She has no leakage or bleeding. Tracing is reactive that she is not in labor. Cervix is closed and high. And the baby is in a breech presentation Plan Plan to observe of mother baby of likely discharge home on Tylenol, bedrest, heating pad or hot bath and follow up with her OB provider Diagnosis Diagnosis: Primary Impression: Abdominal pain affecting , antepartum Additional Impressions: Breech presentation Previous section Disposition: DISCHARGE HOME Condition: Stable Kevin Sutton II, MD Mar 04, 2017 12:51
[2017-03-18] MEDS ORDERED: AMPI500C8 PO (11:43)
[2017-03-23] MEDS ORDERED: AMPI500C8 PO (15:33)
== END 2017-03-04 15:50 | disposition home or self-care (01) ==
LOC: EDBD → HOBED 12:28
DX: O26.893 Other specified pregnancy related conditions, third trimester (principal); R10.9 Unspecified abdominal pain; O32.1XX0 Maternal care for breech presentation, not applicable or unspecified; Z79.899 Other long term (current) drug therapy
CPT/HCPCS: 59025; 99283; J3010

== ENCOUNTER 2017-03-08 18:41 | Emergency (ER) | payer MEDICAID ==
--- NOTE | 2017-03-08 19:38 | PD ---
HPI Chief Complaint Patient had a fall [employer] a Lot Date Seen: Mar 08, 2017 Time Seen: 19:33 Travel History International Travel<30 Days: No Contact w/Intl Traveler<30Days: No Known Affected Area: No History of Present Illness HPI This patient is 26-year-old black female previous 1 now 36 weeks who [facility]. She presents after falling at [employer] lot and hitting her right side. She denies right-sided pain and closed over the right hip protrudes out she's had no bleeding or leakage, baby is active, heart rate tracing is reactive she has occasional contraction Weeks Gestation: 36 Para: 1 : 3 History Obstetric History Obstetric History 1 Early loss Past Surgical History Narrative Surgical Social History Alcohol Use: No Tobacco Use: No Substance Abuse: No Allergies-Medications (Allergen,Severity, Reaction): Coded Allergies: lactose (Verified Adverse Reaction, Severe, 03/04/17) Home Meds Active Scripts Terconazole Vaginal Cream (Terconazole Vaginal Cream) 0.8 % Cream, 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 Prov:Ellie Agarwal 02/28/17 Metronidazole (Metronidazole) 500 Mg Tab, 500 MG PO ONCE for Infection, #4 TAB 0 Refills 2 grams as single dose Prov:Ellie Agarwal 02/28/17 Mtawufyeer-Ohgsryxlrlchh-Lskukbpe (Fioricet) 50-300-40 Mg Cap, 1-2 CAP PO Q6H Y for HEADACHE, #20 CAP 0 Refills Prov:Kevin Sutton II, MD 01/08/17 Vit W/ Ferric Phospha (Vitafol Gummies 3.33-0.333-34.8 mg) 1 Chw Chw, 3.33 CHEW PO DAILY, #60 CHEW 1 Refill Prov:Ellie Agarwal 11/29/16 Reported Medications Diphenhydramine HCl (Benadryl Allergy) 25 Mg Cap, 1 CAP PO DIRECTED 02/09/17 Review of Systems General / Constitutional: No: Fever, Weight Gain, Chills, Other Eyes: No: Diploplia, Blurred Vision, Visual changes, Pain, Photophobia HENT: No: Headaches, Vertigo, Lightheadedness Cardiovascular: No: Irregular Rhythm, Chest Pain or Discomfort, Palpitations, Tachycardia, Syncope, Varicosities, Edema, Cyanosis Respiratory: No: Cough, Short of Breath, Other Gastrointestinal: No: Nausea, Vomiting, Diarrhea Genitourinary: No: Decreased Urinary Output, Oliguria Musculoskeletal: No: Limited ROM, Weakness, Cramping, Edema, Pain Skin: No Rash, No Itching, No Dryness, No Lumps, No Change in Pigmentation, No Change in Nails, No Alopecia, No Lesions Neurologic: No: Weakness, Dizziness, Syncope, Focal Abnormalities, Coordination Problem, Headache, Slurred Speech, Seizures Psychiatric: No: Depression, Suicidal Ideations, Homicidal Ideation Endocrine: No: Heat Intolerance, Cold Intolerance, Polydipsia, Polyuria, Other Physical Exam Narrative GENERAL: Well-nourished, well-developed patient. SKIN: Warm and dry. HEAD: Normocephalic and atraumatic. EYES: No scleral icterus. No injection or drainage. ENT: No nasal drainage noted. Mucous membranes pink. Airway patent. NECK: Supple, trachea midline. No JVD. CARDIOVASCULAR: Regular rate and rhythm without murmurs, gallops, or rubs. RESPIRATORY: Breath sounds equal bilaterally. No accessory muscle use. BREASTS: Bilateral exam showed no masses , no retractions, no nipple discharge. ABDOMEN/GI: Abdomen soft, non-tender, bowel sounds present, no rebound, no guarding , has pain tpalpation of R hip Gravid to [-36] weeks size Fundal Height: [36-] GENITOURINARY: Membranes: [intact ] Uterine Contractions: [occasional-] FHT's: Category: [1-] Baseline: [133-] Reactive: [yes-] Variability: [mod-] Decels: [0-] EXTREMITIES: No cyanosis or edema. BACK: Nontender without obvious deformity. No CVA tenderness. NEUROLOGICAL: Awake and alert. Motor and sensory grossly within normal limits. Five out of 5 muscle strength in all muscle groups. Normal speech. MDM Interpretation(s) Patient is 26-year-old black female previous 1 now 36 weeks who presents having fallen at the [employer]. She had her right side is not having right hip pain no bruising or obvious lesion noted, and heart rate tracing is reactive and no contractions are regular she has an occasional contraction now, [facility] Plan Plan to observe her 1 hour and the remains reactive through that time we will discharge patient home Diagnosis Diagnosis: Primary Impression: Fall Additional Impression: Previous section Disposition: 01 DISCHARGE HOME Condition: Stable Kevin Sutton II, MD Mar 08, 2017 19:38
[2017-03-18] MEDS ORDERED: AMPI500C8 PO (11:43)
[2017-03-23] MEDS ORDERED: AMPI500C8 PO (15:33)
== END 2017-03-08 20:21 | disposition home or self-care (01) ==
LOC: EDBD 18:41 → HOBED 18:41
DX: O9A.213 Injury, poisoning and certain other consequences of external causes complicating pregnancy, third trimester (principal); W19.XXXA Unspecified fall, initial encounter; Y92.512 Supermarket, store or market as the place of occurrence of the external cause; Z3A.36 36 weeks gestation of pregnancy
CPT/HCPCS: 59025

== ENCOUNTER 2017-03-15 16:18 | Emergency (ER) | payer MEDICAID ==
[~2017-03-15 16:18] MED LIST changes: -METR500T10 PO
--- NOTE | 2017-03-15 17:41 | PD ---
HPI Chief Complaint Cramping Date Seen: Mar 15, 2017 Time Seen: 17:38 Travel History International Travel<30 Days: No Contact w/Intl Traveler<30Days: No Known Affected Area: No History of Present Illness HPI 26-year-old who comes in complaining of abdominal cramping since she woke up this morning. Patient states that it has neither worsened or improved. Denies dysuria, abdominal pain, or back pain patient states that she has a breech presentation and is set up for a repeat section on the of this month. 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 Prov:Ellie Agarwal 02/28/17 Hdmtklhwsm-Geuswtawynnuw-Etncmfci (Fioricet) 50-300-40 Mg Cap, 1-2 CAP PO Q6H Y for HEADACHE, #20 CAP 0 Refills Prov:Kevin Sutton II, MD 01/08/17 Vit W/ Ferric Phospha (Vitafol Gummies 3.33-0.333-34.8 mg) 1 Chw Chw, 3.33 CHEW PO DAILY, #60 CHEW 1 Refill Prov:Ellie Agarwal 11/29/16 Reported Medications Diphenhydramine HCl (Benadryl Allergy) 25 Mg Cap, 1 CAP PO DIRECTED 02/09/17 Discontinued Scripts Metronidazole (Metronidazole) 500 Mg Tab, 500 MG PO ONCE for Infection, #4 TAB 0 Refills 2 grams as single dose Prov:Ellie Agarwal 02/28/17 Review of Systems Except as stated in HPI: all other systems reviewed are Neg Physical Exam Narrative GENERAL: Well-nourished, well-developed patient. SKIN: Warm and dry. HEAD: Normocephalic and atraumatic. EYES: No scleral icterus. No injection or drainage. ENT: No nasal drainage noted. Mucous membranes pink. Airway patent. NECK: Supple, trachea midline. No JVD. CARDIOVASCULAR: Regular rate and rhythm without murmurs, gallops, or rubs. RESPIRATORY: Breath sounds equal bilaterally. No accessory muscle use. BREASTS: Bilateral exam showed no masses , no retractions, no nipple discharge. ABDOMEN/GI: Abdomen soft, non-tender, bowel sounds present, no rebound, no guarding Gravid to [-36] weeks size Fundal Height: [-] GENITOURINARY: External Genitalia: intact and normal in appearance BUS glands: [Normal-] Cervix: [-Closed] Dilatation: [-Closed] Effacement: [-50] Station: [-High] Presentation: [Breech] Membranes: [intact] Uterine Contractions: Generalized irritability FHT's: Category: [-1] Baseline: [-140] Reactive: [-Reactive] Variability: [Reactive-] Decels: [-Absent] EXTREMITIES: No cyanosis or edema. BACK: Nontender without obvious deformity. No CVA tenderness. NEUROLOGICAL: Awake and alert. Motor and sensory grossly within normal limits. Five out of 5 muscle strength in all muscle groups. Normal speech. Data Data Vital Signs Reviewed: Yes Group B Strep: Negative MDM Medical Record Reviewed: Yes Plan 26-year-old who is at 36-37 weeks gestation Generalized irritability of the uterus but no contractions the patient does not labor at this time Previous section due for repeat on the Diagnosis Diagnosis: Primary Impression: Irregular uterine contractions Additional Impressions: 36 weeks gestation of Breech presentation Previous section complicating , antepartum condition or complication Disposition: 01 DISCHARGE HOME Farideh Acuna MD Mar 15, 2017 17:41
[2017-03-18] MEDS ORDERED: AMPI500C8 PO (11:43)
[2017-03-23] MEDS ORDERED: AMPI500C8 PO (15:33)
== END 2017-03-15 17:55 | disposition home or self-care (01) ==
LOC: HOBED 16:18
DX: O62.2 Other uterine inertia (principal); O34.219 Maternal care for unspecified type scar from previous cesarean delivery; Z3A.36 36 weeks gestation of pregnancy
CPT/HCPCS: 59025

== ENCOUNTER 2017-03-20 18:50 | Emergency (ER) | payer MEDICAID ==
[~2017-03-20] VITALS: Ht 154.9 cm; Wt 62.6 kg
[~2017-03-20 18:50] MED LIST changes: +AMPI500C8 PO
--- NOTE | 2017-03-20 19:44 | PD ---
HPI Chief Complaint Back pain and lower abdominal pain with some fatigue Date Seen: Mar 20, 2017 Time Seen: 19:39 Travel History International Travel<30 Days: No Contact w/Intl Traveler<30Days: No Known Affected Area: No History of Present Illness HPI 26-year-old who is at 38 weeks gestation who complains of lower back pain and lower abdominal pain bilaterally this been going on for the past 2-3 weeks but it seems worse this morning. Patient states that she used her grandmothers Accu-Chek machine to check her blood sugar which was 287, she is not a diabetic and she is not sure the last on this machine was used. Accu-Chek was performed as soon she got here which was 78. Patient states that she does not drink very much fluids as she usually eats ice. Weeks Gestation: 38 Para: 1 : 3 Miscarriage: 1 History Past Medical History Medical History: Denies Significant Hx Obstetric History Obstetric History section Past Surgical History Narrative Surgical Family History Family History: Negative Social History Alcohol Use: No Tobacco Use: No Substance Abuse: No Allergies-Medications (Allergen,Severity, Reaction): Coded Allergies: lactose (Verified Adverse Reaction, Severe, 03/14/17) Home Meds Active Scripts Ampicillin (Ampicillin) 500 Mg Cap, 500 MG PO QID for 7 Days, #28 CAP Prov:Ellie Agarwal 03/18/17 Terconazole Vaginal Cream (Terconazole Vaginal Cream) 0.8 % Cream, 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 Prov:Ellie Agarwal 02/28/17 Ycqukqtjke-Txttiewvboewm-Jdcwdoms (Fioricet) 50-300-40 Mg Cap, 1-2 CAP PO Q6H Y for HEADACHE, #20 CAP 0 Refills Prov:Kevin Sutton II, MD 01/08/17 Vit W/ Ferric Phospha (Vitafol Gummies 3.33-0.333-34.8 mg) 1 Chw Chw, 3.33 CHEW PO DAILY, #60 CHEW 1 Refill Prov:Ellie Agarwal 11/29/16 Reported Medications Diphenhydramine HCl (Benadryl Allergy) 25 Mg Cap, 1 CAP PO DIRECTED 02/09/17 Review of Systems Except as stated in HPI: all other systems reviewed are Neg Physical Exam Narrative GENERAL: Well-nourished, well-developed patient. SKIN: Warm and dry. HEAD: Normocephalic and atraumatic. EYES: No scleral icterus. No injection or drainage. ENT: No nasal drainage noted. Mucous membranes pink. Airway patent. NECK: Supple, trachea midline. No JVD. CARDIOVASCULAR: Regular rate and rhythm without murmurs, gallops, or rubs. RESPIRATORY: Breath sounds equal bilaterally. No accessory muscle use. ABDOMEN/GI: Abdomen soft, non-tender, bowel sounds present, no rebound, no guarding Gravid to [-38] weeks size Fundal Height: [-] GENITOURINARY: External Genitalia: intact and normal in appearance BUS glands: [-Normal] Cervix: [Closed-] Dilatation: [-Closed] Effacement: [-50] Station: [--2] Presentation: [-] Membranes: [intact] Uterine Contractions: [-Occasional] FHT's: Category: [-1] Baseline: [140-] Reactive: [-Moderate] Variability: [-Moderate] Decels: [-Absent] EXTREMITIES: No cyanosis or edema. BACK: Nontender without obvious deformity. No CVA tenderness. NEUROLOGICAL: Awake and alert. Motor and sensory grossly within normal limits. Five out of 5 muscle strength in all muscle groups. Normal speech. Urine dip Small amount of blood, trace protein, small to moderate ketones Data Data Vital Signs Reviewed: Yes Group B Strep: Positive (patient states that she had a group B strep 2 weeks ago that was negative along with a positive Trichomonas. She took the Flagyl and then another GBS and another Trichomonas was performed and she states that the second GBS was positive) MDM Medical Record Reviewed: Yes Plan 26-year-old with discomforts of Patient is not labor cervix is closed and there are no regular contractions on monitor Discussed the necessity of adequate hydration and not just eating ice I cannot explain the discrepancy with the group B strep negative in the patient' s chart but then the patient was called with a positive group B strep and there is a possibility that perhaps the second group B strep was performed in the office along with the Trichomonas culture Previous section patient is set up for repeat on the Diagnosis Diagnosis: Primary Impression: Abdominal pain affecting , antepartum Additional Impressions: Low back pain during in third trimester Previous section complicating , antepartum condition or complication Disposition: 01 DISCHARGE HOME Farideh Acuna MD Mar 20, 2017 19:44
[2017-03-23] MEDS ORDERED: AMPI500C8 PO (15:33)
== END 2017-03-20 20:01 | disposition home or self-care (01) ==
LOC: HOBED 18:50
DX: O26.893 Other specified pregnancy related conditions, third trimester (principal); M54.5 Low back pain; R10.30 Lower abdominal pain, unspecified; O34.219 Maternal care for unspecified type scar from previous cesarean delivery; Z3A.38 38 weeks gestation of pregnancy
CPT/HCPCS: 82948; 99283

== ENCOUNTER 2017-03-25 14:15 | Emergency (ER) | payer MEDICAID ==
[2017-03-25] VITALS (7 sets, daily range): PULSE 82–103
[~2017-03-25 14:15] MED LIST changes: -BENA25CA4 PO; -BUTA1CAP PO; -TERC0.8C VAGINAL
--- NOTE | 2017-03-25 15:05 | PD ---
HPI Chief Complaint Abdominal pain Date Seen: Mar 25, 2017 Time Seen: 14:30 (Tenzin Vasquez MD R2) Travel History International Travel<30 Days: No Contact w/Intl Traveler<30Days: No (Tenzin Vasquez MD R2) History of Present Illness HPI 6-year-old at 38/5 weeks gestation presenting for diffuse abdominal pain worse in the pelvic region starting yesterday. Pain is 10 out of 10 in severity and constant, does not wax or wane. She denies vaginal bleeding, discharge, leakage of fluid, fevers, chills, dysuria, bloody stools, constipation, nausea/ vomiting. care at [facility] for [facility]. She had a couple bouts of Trichomonas during this , most recently a test of cure is performed March 14 and was negative. (Tenzin Vasquez MD R2) History Past Medical History Medical History: Denies Significant Hx (Tenzin Vasquez MD R2) Obstetric History Obstetric History First baby born by C/S (Tenzin Vasquez MD R2) Past Surgical History Narrative Surgical C/S (Tenzin Vasquez MD R2) Family History Family History: Negative (Tenzin Vasquez MD R2) Social History Alcohol Use: No Tobacco Use: No Substance Abuse: No (Tenzin Vasquez MD R2) Allergies-Medications (Allergen,Severity, Reaction): Coded Allergies: lactose (Verified Adverse Reaction, Severe, 03/25/17) Home Meds Active Scripts Ampicillin (Ampicillin) 500 Mg Cap, 500 MG PO QID for Infection for 7 Days, #28 CAP 0 Refills Prov:Ellie gAarwal 03/23/17 Vit W/ Ferric Phospha (Vitafol Gummies 3.33-0.333-34.8 mg) 1 Chw Chw, 3.33 CHEW PO DAILY, #60 CHEW 1 Refill Prov:Ellie Agarwal 11/29/16 Discontinued Reported Medications Diphenhydramine HCl (Benadryl Allergy) 25 Mg Cap, 1 CAP PO DIRECTED 02/09/17 Discontinued Scripts Ampicillin (Ampicillin) 500 Mg Cap, 500 MG PO QID for 7 Days, #28 CAP Prov:Ellie Agarwal 03/18/17 Terconazole Vaginal Cream (Terconazole Vaginal Cream) 0.8 % Cream, 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 Prov:Ellie Agarwal SUPERVISOR [employer]EARCH 02/28/17 Qqeumadcaz-Jhjopbplmjhoj-Rrbahzjm (Fioricet) 50-300-40 Mg Cap, 1-2 CAP PO Q6H Y for HEADACHE, #20 CAP 0 Refills Prov:Kevin Sutton II, MD 01/08/17 Review of Systems Except as stated in HPI: all other systems reviewed are Neg (Tenzin Vasquez MD R2) Physical Exam Narrative GENERAL: Well-nourished, well-developed patient. SKIN: Warm and dry. HEAD: Normocephalic and atraumatic. EYES: No scleral icterus. No injection or drainage. ENT: No nasal drainage noted. Mucous membranes pink. Airway patent. CARDIOVASCULAR: Regular rate and rhythm without murmurs, gallops, or rubs. RESPIRATORY: Breath sounds equal bilaterally. No accessory muscle use. ABDOMEN/GI: Abdomen soft, diffusely tender on dedicated exam but distractible. Breech presentation confirmed by ultrasound. GENITOURINARY: Cervix: posterior Dilation: 1 cm Effacement: 50% Presentation: Breech Station: -3 Membranes: intact Contractions: Irregular every 12-15 min FHT's: Category: 1 Baseline: 120 Reactive: Y Variability: moderate Decels: N EXTREMITIES: No cyanosis or edema. NEUROLOGICAL: Awake and alert. Motor and sensory grossly within normal limits. Normal speech. (eTnzin Vasquez MD R2) Data Data Vital Signs Reviewed: Yes Orders Orders Vital Signs (Adult) .ON ADMISSION (03/25/17 14:51) ^ Labor Status (03/25/17 14:51) Urinalysis - C+S If Indicated (03/25/17 14:51) ^ Non Stress Test (03/25/17 14:51) ^ Hydration (03/25/17 14:51) Group B Strep: Positive (Tenzin Vasquez MD R2) MDM Medical Record Reviewed: Yes Narrative Course / MDM 26-year-old at 38/5 weeks gestation presenting with abdominal pain #1 IUP Category 1 tracing, reassuring #2 breech presentation scheduled for Wednesday 03/28 #3 GBS positive #4 abdominal pain Exam distractible, irregular occasional contractions noted on the monitor, clinical picture not suggestive of appendicitis or cholecystitis Urinalysis not suggestive of UTI Vaginal exam with whitish discharge for which patient is currently being treated with 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 (Joshua Peterson MD) Diagnosis Diagnosis: Primary Impression: False labor Disposition: 01 DISCHARGE HOME Condition: Good Patient Instructions: Early Labor Signs (ED), General Instructions, Abdominal Pain in (ED) Tenzin Vasquez MD R2 Mar 25, 2017 15:05 Joshua Peterson MD Mar 26, 2017 05:33
[2017-03-25 15:39] LABS: BACTERIA, URINE OCC /hpf; BLOOD, URINE TRACE (NEG); COMMENT (UR) CULT NOT INDICATED; CULTURE IF INDICATED CULT NOT INDICATED; GLUCOSE,URINE NEG (NEG); KETONE, URINE NEG (NEG); NITRITE,URINE NEG (NEG); SQUAMOUS EPITHELIAL CELL URINE 8 /hpf (0-5); URINE COLOR LIGHT-YELLOW (YELLW/STRAW)
[2017-04-04] MEDS ORDERED: DULC10SU3 RECTAL (13:45)
[2017-04-04] MEDS ORDERED: DULC100C PO (13:45)
== END 2017-03-25 16:54 | disposition home or self-care (01) ==
LOC: HOBED 14:15
DX: O47.9 False labor, unspecified (principal); O32.1XX0 Maternal care for breech presentation, not applicable or unspecified; Z3A.38 38 weeks gestation of pregnancy
CPT/HCPCS: 59025; 76815; 81001

== ENCOUNTER 2017-03-27 14:23 | Inpatient (IN) | payer MEDICAID ==
[2017-03-27] VITALS (16 sets, daily range): BP systolic 143; BP diastolic 65; PULSE 63–75; RESP 14–20; TEMP 97.7–98.3; O2SAT 100
[~2017-03-27] VITALS: Ht 154.9 cm; Wt 63.0 kg
[~2017-03-27 14:23] MED LIST changes: +BENA25CA4 PO; +BUTA1CAP PO; +TERC0.8C VAGINAL
[2017-03-27] MEDS ORDERED: LACTATED RINGER'S 1000 ML INJ 1,000 ML IV PRN (14:49)
[2017-03-27] MEDS ORDERED: LACTATED RINGER'S 1000 ML INJ 1,000 ML IV SCH ×2 (14:49→23:42)
[2017-03-27] MEDS ORDERED: ONDANSETRON HCL 4 MG/2 ML VIAL IV PUSH PRN ×2 (15:00→18:45)
[2017-03-27] MEDS ORDERED: SODIUM CHLORID 0.9% 500 ML INJ 500 ML IV PRN (15:00)
[2017-03-27] MEDS ORDERED: LIDOCAINE HCL 1% 50 ML VIAL I-DERMAL PRN (15:00)
[2017-03-27] MEDS ORDERED: CITRIC ACID-SODIUM CITRATE LIQ 30 ML UDC PO SCH (15:00)
[2017-03-27] MEDS ORDERED: OXYTOCIN 30 UNITS-500ML PREMIX 500 ML IV ONE ×2 (15:00→18:45)
[2017-03-27] MEDS ORDERED: SODIUM CHLOR 0.9% 1000 ML INJ 1,000 ML IV PRN (15:09)
--- NOTE | 2017-03-27 15:14 | PD ---
HPI Chief Complaint 26 y/o F, at 39w , scheduled for repeat c/s and breech presentation tomorrow, comes in for SROM at 14:00 today. She felt a gush of clear fluid - no brown or blood in fluid. She does not feel cxns. 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 Obhx: c/s x 1 (8 years ago) - for poor pushing/arrest of descent - baby 7lbs SAB x 1 (Sarah Bui MD R2) Allergies-Medications (Allergen,Severity, Reaction): Coded Allergies: lactose (Verified Adverse Reaction, Severe, 03/25/17) Home Meds Active Scripts Ampicillin (Ampicillin) 500 Mg Cap, 500 MG PO QID for Infection for 7 Days, #28 CAP 0 Refills Prov:Ellie Agarwal 03/23/17 Vit W/ Ferric Phospha (Vitafol Gummies 3.33-0.333-34.8 mg) 1 Chw Chw, 3.33 CHEW PO DAILY, #60 CHEW 1 Refill Prov:Ellie Agarwal 11/29/16 Discontinued Reported Medications Diphenhydramine HCl (Benadryl Allergy) 25 Mg Cap, 1 CAP PO DIRECTED 02/09/17 Discontinued Scripts Ampicillin (Ampicillin) 500 Mg Cap, 500 MG PO QID for 7 Days, #28 CAP Prov:Ellie Agarwal 03/18/17 Terconazole Vaginal Cream (Terconazole Vaginal Cream) 0.8 % Cream, 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 Prov:Ellie Agarwal 02/28/17 Rpaxrbhsur-Aetkuzjjjwejo-Vqruavfy (Fioricet) 50-300-40 Mg Cap, 1-2 CAP PO Q6H Y for HEADACHE, #20 CAP 0 Refills Prov:Kevin Sutton II, MD 01/08/17 Physical Exam Narrative GENERAL: Well-nourished, well-developed patient. SKIN: Warm and dry. HEAD: Normocephalic and atraumatic. EYES: No scleral icterus. No injection or drainage. ENT: No nasal drainage noted. Mucous membranes pink. Airway patent. NECK: Supple, trachea midline. No JVD. CARDIOVASCULAR: Regular rate and rhythm without murmurs, gallops, or rubs. RESPIRATORY: Breath sounds equal bilaterally. No accessory muscle use. BREASTS: Bilateral exam showed no masses , no retractions, no nipple discharge. ABDOMEN/GI: Abdomen soft, non-tender, bowel sounds present, no rebound, no guarding Gravid to [39] weeks size Fundal Height: [39] GENITOURINARY: Dilatation: [fingertip] Effacement: [50] Station: [ floating] Presentation: [-] Membranes: [ ruptured - confirmed via amniosure, fluid clear] U/S: breech presentation FHT's: Category: [-] Baseline: [-] Reactive: [-] Variability: [-] Decels: [-] EXTREMITIES: No cyanosis or edema. BACK: Nontender without obvious deformity. No CVA tenderness. NEUROLOGICAL: Awake and alert. Motor and sensory grossly within normal limits. Five out of 5 muscle strength in all muscle groups. Normal speech. (Sarah Bui MD R2) Data Data Vital Signs Reviewed: Yes Orders Orders Admit To Inpatient (03/27/17 ) Code Status (03/27/17 14:49) Vital Signs (Adult) .Per protocol (03/27/17 14:49) Heart (03/27/17 14:49) Amnioinfusion (03/27/17 14:49) Diet Npo (03/27/17 Dinner) Lactated Ringer's 1000 Ml Inj (Lr 1000 M (03/27/17 14:49) Lactated Ringer's 1000 Ml Inj (Lr 1000 M (03/27/17 14:49) Sodium Chlorid 0.9% 500 Ml Inj (Ns 500 M (03/27/17 15:00) Sodium Chlor 0.9% 1000 Ml Inj (Ns 1000 M (03/27/17 15:09) Lidocaine 1% Inj (50 Ml) (Xylocaine 1% I (03/27/17 15:00) Citric Acid-Sodium Citrate Liq (Bicitra (03/27/17 15:00) Ondansetron Inj (Zofran Inj) (03/27/17 15:00) Fentanyl Inj (Fentanyl Inj) (03/27/17 15:00) Fentanyl Inj (Fentanyl Inj) (03/27/17 15:00) Complete Blood Count With Diff (03/27/17 14:49) Hold Clot (03/27/17 14:49) Abo/Rh Blood Type (03/27/17 14:49) Urinalysis - C+S If Indicated (03/27/17 14:49) Type And Screen (03/27/17 14:49) Resp Oxygen Non Rebreathe Mask (03/27/17 ) ^ Epidural / Intrathecal Infus (03/27/17 14:49) Oxytocin 30 Units-500ml Premix (Pitocin (03/27/17 15:00) Inpatient Certification (03/27/17 ) Cefazolin Inj (Ancef Inj) (03/27/17 15:00) Ob (2e) Additional Admit Info (03/27/17 14:57) (Sarah Bui MD R2) MDM Plan 26 y/o F, at 39w , scheduled for repeat c/s and breech presentation tomorrow, comes in for SROM at 14:00 today - admit to L&D - NPO since 10AM - c/s at 16:30 with - aware and agrees with plan (Sarah Bui MD R2) Attending Attestation Patient seen and evaluated with resident under direct supervision, agree with assessment and plan. (Joshua Peterson MD) Sarah Bui MD R2 Mar 27, 2017 15:14 Joshua Peterson MD Mar 27, 2017 17:17
[2017-03-27 16:49] LABS: AUTOMATED NEUTROPHIL # 5.6 TH/MM3 (1.8-7.7); BASOPHIL % 0.3 % (0.0-2.0); EOSINOPHIL # 0.1 TH/MM3 (0-0.4); EOSINOPHIL % 0.8 % (0.0-4.0); HEMATOCRIT 34.6 % (35.0-46.0); HEMO FLAGS DIFF FINAL; LYMPH % 27.9 % (9.0-44.0); LYMPHOCYTE # 2.6 TH/MM3 (1.0-4.8); MEAN CELL VOLUME 93.2 FL (80.0-100.0); MEAN CORPUSCULAR HEMOGLOBIN 31.4 PG (27.0-34.0); MEAN CORPUSCULAR HGB CONC 33.7 % (32.0-36.0); MONO % 10.1 % (0.0-8.0); NEUT % 60.9 % (16.0-70.0); PLATELET COUNT 284 TH/MM3 (150-450); RED BLOOD COUNT 3.71 MIL/MM3 (4.00-5.30); RED CELL DISTRIBUTION WIDTH 13.1 % (11.6-17.2); WHITE BLOOD COUNT 9.2 TH/MM3 (4.0-11.0)
[2017-03-27 17:01] LABS: BLOOD, URINE MOD (NEG); GLUCOSE,URINE NEG (NEG); KETONE, URINE NEG (NEG); MUCUS URINE FEW /lpf (OCC); NITRITE,URINE NEG (NEG); PH, URINE 6.5 (5.0-8.5); SQUAMOUS EPITHELIAL CELL URINE 1 /hpf (0-5); URINE COLOR LIGHT-YELLOW (YELLW/STRAW)
[2017-03-27 17:05] LABS: COMMENT (UR) CULT NOT INDICATED; CULTURE IF INDICATED CULT NOT INDICATED
[2017-03-27] MEDS ORDERED: ceFAZolin 2 GM PREMIX 50 ML IV ONE (17:15)
--- NOTE | 2017-03-27 17:18 | HHI.HP ---
History & Physical H&P HPI HPI Chief Complaint 26 y/o F, at 39w , scheduled for repeat c/s and breech presentation tomorrow, comes in for SROM at 14:00 today. She felt a gush of clear fluid - no brown or blood in fluid. She does not feel cxns. 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 Obhx: c/s x 1 (8 years ago) - for poor pushing/arrest of descent - baby 7lbs SAB x 1 (Sarah Bui MD R2) Allergies-Medications Allergies-Medications (Allergen,Severity, Reaction): Coded Allergies: lactose (Verified Adverse Reaction, Severe, 03/25/17) Home Meds Active Scripts Ampicillin (Ampicillin) 500 Mg Cap, 500 MG PO QID for Infection for 7 Days, #28 CAP 0 Refills Prov:Ellie Agarwal 03/23/17 Vit W/ Ferric Phospha (Vitafol Gummies 3.33-0.333-34.8 mg) 1 Chw Chw, 3.33 CHEW PO DAILY, #60 CHEW 1 Refill Prov:Ellie Agarwal 11/29/16 Discontinued Reported Medications Diphenhydramine HCl (Benadryl Allergy) 25 Mg Cap, 1 CAP PO DIRECTED 02/09/17 Discontinued Scripts Ampicillin (Ampicillin) 500 Mg Cap, 500 MG PO QID for 7 Days, #28 CAP Prov:Ellie Agarwal 03/18/17 Terconazole Vaginal Cream (Terconazole Vaginal Cream) 0.8 % Cream, 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 Prov:Ellie Agarwal 02/28/17 Oainhqndel-Kddfqcgdprysn-Hqgfpsfl (Fioricet) 50-300-40 Mg Cap, 1-2 CAP PO Q6H Y for HEADACHE, #20 CAP 0 Refills Prov:Kevin Sutton II, MD 01/08/17 ROS Review of Systems Physical Exam Physical Exam Narrative GENERAL: Well-nourished, well-developed patient. SKIN: Warm and dry. HEAD: Normocephalic and atraumatic. EYES: No scleral icterus. No injection or drainage. ENT: No nasal drainage noted. Mucous membranes pink. Airway patent. NECK: Supple, trachea midline. No JVD. CARDIOVASCULAR: Regular rate and rhythm without murmurs, gallops, or rubs. RESPIRATORY: Breath sounds equal bilaterally. No accessory muscle use. BREASTS: Bilateral exam showed no masses , no retractions, no nipple discharge. ABDOMEN/GI: Abdomen soft, non-tender, bowel sounds present, no rebound, no guarding Gravid to [39] weeks size Fundal Height: [39] GENITOURINARY: Dilatation: [fingertip] Effacement: [50] Station: [ floating] Presentation: [-] Membranes: [ ruptured - confirmed via amniosure, fluid clear] U/S: breech presentation FHT's: Category: [-] Baseline: [-] Reactive: [-] Variability: [-] Decels: [-] EXTREMITIES: No cyanosis or edema. BACK: Nontender without obvious deformity. No CVA tenderness. NEUROLOGICAL: Awake and alert. Motor and sensory grossly within normal limits. Five out of 5 muscle strength in all muscle groups. Normal speech. (Sarah Bui MD R2) Data Data Data Vital Signs Reviewed: Yes Orders Orders Admit To Inpatient (03/27/17 ) Code Status (03/27/17 14:49) Vital Signs (Adult) .Per protocol (03/27/17 14:49) Heart (03/27/17 14:49) Amnioinfusion (03/27/17 14:49) Diet Npo (03/27/17 Dinner) Lactated Ringer's 1000 Ml Inj (Lr 1000 M (03/27/17 14:49) Lactated Ringer's 1000 Ml Inj (Lr 1000 M (03/27/17 14:49) Sodium Chlorid 0.9% 500 Ml Inj (Ns 500 M (03/27/17 15:00) Sodium Chlor 0.9% 1000 Ml Inj (Ns 1000 M (03/27/17 15:09) Lidocaine 1% Inj (50 Ml) (Xylocaine 1% I (03/27/17 15:00) Citric Acid-Sodium Citrate Liq (Bicitra (03/27/17 15:00) Ondansetron Inj (Zofran Inj) (03/27/17 15:00) Fentanyl Inj (Fentanyl Inj) (03/27/17 15:00) Fentanyl Inj (Fentanyl Inj) (03/27/17 15:00) Complete Blood Count With Diff (03/27/17 14:49) Hold Clot (03/27/17 14:49) Abo/Rh Blood Type (03/27/17 14:49) Urinalysis - C+S If Indicated (03/27/17 14:49) Type And Screen (03/27/17 14:49) Resp Oxygen Non Rebreathe Mask (03/27/17 ) ^ Epidural / Intrathecal Infus (03/27/17 14:49) Oxytocin 30 Units-500ml Premix (Pitocin (03/27/17 15:00) Inpatient Certification (03/27/17 ) Cefazolin Inj (Ancef Inj) (03/27/17 15:00) Ob (2e) Additional Admit Info (03/27/17 14:57) (Sarah Bui MD R2) MDM MDM Plan 26 y/o F, at 39w , scheduled for repeat c/s and breech presentation tomorrow, comes in for SROM at 14:00 today - admit to L&D - NPO since 10AM - c/s at 16:30 with - aware and agrees with plan (Sarah Bui MD R2) Attending Attestation Patient seen and evaluated with resident under direct supervision, agree with assessment and plan. (Joshua Peterson MD) Sarah Bui MD R2 Mar 27, 2017 15:14 Joshua Peterson MD Mar 27, 2017 17:17 Joshua Peterson MD Mar 27, 2017 17:18
--- NOTE | 2017-03-27 18:41 | PD.OP ---
Operative Report Date of Surgery: Mar 27, 2017 Preoperative Diagnosis: Term intrauterine , prior , breech presentation Postoperative Diagnosis: Same, delivered Procedure: Repeat lower uterine segment transverse section The patient was taken to the operating room and after administration of the spinal anesthetic was prepped and draped in the dorsal supine position. Her spinal level was not adequate following ample opportunity for to achieve this and the decision was made for general anesthetic. The patient was therefore performed under general anesthetic. Skin was incised along the prior scar and subcutaneous tissues tissue sharply dissected away down to level of the fascia which was nicked in the midline and extended bilaterally with scissors. The fascia was from the underlying muscle with sharp and blunt dissection. The muscle is bluntly divided in the midline and the peritoneal cavity was bluntly entered. A transverse hysterotomy was created with the scalpel. membranes were encountered with clear fluid noted. Breech presentation was confirmed. The breech was elevated through the hysterotomy and the legs were delivered by Pinard's maneuver. With fundal pressure and gentle traction the infant was delivered to the level of the scapula. The anterior arm wasn't splinted across the chest and delivered. The trunk was slightly rotated and the posterior arm delivered spontaneously. The vertex was maintained in a well flexed position and delivered without additional maneuvers. The nose and mouth were bulb suctioned. The cord was promptly clamped due to the general anesthetic. The baby was passed to the waiting attendants. Cord blood sample was obtained. The fundus was massaged until the placenta passed spontaneously. The uterine cavity was wiped with a moistened lap sponge. The hysterotomy was closed with a running suture of 0 Monocryl. After observing normal appearing tubes ovaries and uterus the paracolic gutters and posterior cul-de-sac were evacuated of amniotic fluid and blood. The fascia was closed with #1 PDS. The subcutaneous tissue was closed with 3-0 Vicryl and the skin with 4-0 subcuticular Vicryl and tissue glue. Anesthesia: Spinal, converted to general Surgeon: Joshua Peterson Munitions Handler(s): Derrell Resident Surgeon: Derrell Operation and Findings: Normal appearing tubes ovaries and uterus Estimated blood loss 400 cc Joshua Peterson MD Mar 27, 2017 18:41
[2017-03-27] MEDS ORDERED: KETOROLAC TROMETHAMINE 60 MG/2 ML (IM) VIAL IM PRN (18:45)
[2017-03-27] MEDS: ACETAMINOPHEN 1000 MG/100 ML 100 ML IV SCH (18:45)
[2017-03-27] MEDS ORDERED: SODIUM CHLORIDE 0.9% FLUSH 10 ML FLUSH IV FLUSH PRN (18:45)
[2017-03-27] MEDS ORDERED: ACETAMINOPHEN 1000 MG/100 ML 100 ML IV ONE (18:56)
[2017-03-27] MEDS ORDERED: MORPHINE SULFATE 30 MG/30 ML PCA ONE (19:27)
[2017-03-27] MEDS ORDERED: OXYTOCIN 30 UNITS-500ML PREMIX 500 ML ONE (19:27)
[2017-03-27] MEDS ORDERED: MORPHINE SULFATE 30 MG/30 ML PCA IV SCH (19:45)
[2017-03-27] MEDS ORDERED: NALOXONE HCL 0.4 MG/ML AMP IV PUSH PRN (19:45)
[2017-03-27] MEDS ORDERED: SODIUM CHLORIDE 0.9% FLUSH 10 ML FLUSH IV FLUSH SCH (21:00)
[2017-03-27] MEDS ORDERED: PCA - TOTAL MG MORPHINE DELIVERED PER SHIFT SCH (22:00)
[2017-03-28 00:30] VITALS: TEMP 97.9
[2017-03-28] MEDS ORDERED: OXYTOCIN 30 UNITS-500ML PREMIX 500 ML IV PRN (04:45)
[2017-03-28 05:00] VITALS: BP 108/58; PULSE 64; RESP 16; TEMP 97.5; O2SAT 100
[2017-03-28 05:58] LABS: AUTOMATED NEUTROPHIL # 16.6 TH/MM3 (1.8-7.7); BASOPHIL % 0.2 % (0.0-2.0); HEMATOCRIT 26.5 % (35.0-46.0); HEMO FLAGS DIFF FINAL; LYMPH % 8.5 % (9.0-44.0); LYMPHOCYTE # 1.7 TH/MM3 (1.0-4.8); MEAN CELL VOLUME 92.9 FL (80.0-100.0); MEAN CORPUSCULAR HEMOGLOBIN 32.3 PG (27.0-34.0); MEAN CORPUSCULAR HGB CONC 34.7 % (32.0-36.0); MONO % 6.7 % (0.0-8.0); NEUT % 84.6 % (16.0-70.0); PLATELET COUNT 235 TH/MM3 (150-450); RED BLOOD COUNT 2.85 MIL/MM3 (4.00-5.30); WHITE BLOOD COUNT 19.6 TH/MM3 (4.0-11.0)
[2017-03-28] MEDS: ACETAMINOPHEN 1000 MG/100 ML 100 ML IV SCH (09:00)
[2017-03-28] MEDS: oxyCODONE/ACETAMINOPHEN 5 MG/325 MG TAB PO PRN ×3 (10:42→20:37)
--- NOTE | 2017-03-28 11:33 | HHI.OB ---
Subjective Post Operative Day: 1 Remarks 26 year old female s/p repeat at 39 wks gestation, POD1. AFVSS. Patient reports she is feeling well. Bleeding is decreasing and pain is well- controlled. She is breast/formula feeding and bonding well with baby. Ambulating without difficulties. She is tolerating a diet without nausea or vomiting. She has not had a bowel movement. She has not passed gas. Denies chest pain, dysuria, shortness of breath, or calf pain. Objective Vitals/I&O Vital Signs Date Time Temp Pulse Resp B/P (MAP) Pulse Ox O2 Delivery O2 Flow Rate FiO2 03/28/17 05:00 64 108/58 (75) 03/28/17 05:00 97.5 16 100 03/28/17 00:30 97.9 03/27/17 20:37 16 03/27/17 20:30 98.0 20 100 03/27/17 20:03 98.0 03/27/17 19:30 100 03/27/17 19:15 143/65 (91) 03/27/17 19:15 63 16 100 03/27/17 19:15 16 03/27/17 19:00 63 14 100 03/27/17 18:45 97.7 03/27/17 16:50 64 03/27/17 16:40 70 03/27/17 16:35 74 03/27/17 16:30 75 03/27/17 15:25 73 03/27/17 15:20 72 03/27/17 15:15 73 03/27/17 15:10 73 03/27/17 15:03 98.0 03/27/17 15:00 98.3 Result Diagram: 03/28/17 0519 Objective Remarks GENERAL: Well-nourished, well-developed patient. CARDIOVASCULAR: Regular rate and rhythm without murmurs, gallops, or rubs. RESPIRATORY: Breath sounds equal bilaterally. No accessory muscle use. ABDOMEN/GI: Abdomen soft, non-tender, bowel sounds present. Incision: Clean, dry and intact. Fundus: Firm, non-tender at umbilicus. GENITOURINARY: Light to moderate bleeding. EXTREMITIES: No cyanosis or edema, non-tender, without signs of DVT. Medications and IVs Current Medications Medications (Trade) Dose Ordered Sig/Pamela Route Start Time Stop Time Status Last Admin (Xylocaine 1% Inj (50 ml)) 0.1 ml UNSCH X1 PRN I-DERMAL 03/27/17 15:00 03/30/17 14:59 (Bicitra Liq) 30 ml S[employer]OL A[employer]LET[employer] DIRECTOR PO 03/27/17 15:00 03/31/17 14:59 Lactated Ringer's 1,000 ml @ 100 mls/hr Q10H IV 03/27/17 23:42 03/28/17 19:41 03/28/17 05:08 Oxytocin 500 ml @ 100 mls/hr UNSCH X1 PRN IV 03/28/17 04:45 03/29/17 04:44 03/28/17 00:21 (NS Flush) 2 ml BID IV FLUSH 03/27/17 21:00 (NS Flush) 2 ml UNSCH PRN IV FLUSH 03/27/17 18:45 Acetaminophen 100 ml @ 400 mls/hr TID IV 03/27/17 18:45 03/28/17 13:14 03/27/17 18:45 (M-M-R Ii Inj) 0.5 ml ONCE ONCE SQ 03/28/17 16:00 03/28/17 16:01 (Boostrix Inj) 0.5 ml ONCE ONCE IM 03/28/17 16:00 03/28/17 16:01 (Zofran Inj) 4 mg Q6H PRN IV PUSH 03/27/17 18:45 (Percocet 5-325 Mg) 1 tab Q4H PRN PO 03/28/17 08:15 (Percocet 5-325 Mg) 2 tab Q4H PRN PO 03/28/17 08:15 03/28/17 10:42 Assessment/Plan Assessment and Plan 26 yo female s/p repeat C/S, POD 1 - AFVSS - Continue routine care - Motrin and Percocet PRN pain - Encourage OOB - Pelvic rest x 6 wks. Will need 1 week incision check. - Contraception: OCPs-progestin only, start at 6 weeks - Anticipate D/C tomorrow if baby is cleared Radha Amaya MD R1 Mar 28, 2017 11:33
[2017-03-28] MEDS: diphenhydrAMINE HCL 50 MG/ML VIAL IV PUSH PRN ×2 (11:57→19:31)
[2017-03-28 15:00] VITALS: BP 100/50; PULSE 70; RESP 18; TEMP 98.1
[2017-03-28] MEDS ORDERED: WITCH HAZEL 50%/GLYCERIN 12.5% 40 PAD JAR TOPICAL PRN (15:30)
[2017-03-28] MEDS ORDERED: ONDANSETRON ODT 4 MG TAB PO PRN (15:30)
[2017-03-28] MEDS ORDERED: ACETAMINOPHEN 325 MG TAB PO PRN (15:30)
[2017-03-28] MEDS ORDERED: ALUMINUM/MAGNESIUM/SIMETH 30 ML CUP PO PRN (15:30)
[2017-03-28] MEDS ORDERED: BENZOCAINE 20% TOPICAL SPRAY 60 ML CAN TOPICAL PRN (15:30)
[2017-03-28] MEDS ORDERED: ZOLPIDEM TARTRATE 5 MG TAB PO PRN (15:30)
[2017-03-28] MEDS: DOCUSATE SODIUM 50 MG/SENNA 8.6 MG TAB PO PRN (15:46)
[2017-03-28] MEDS: IBUPROFEN 600 MG TAB PO PRN ×2 (15:47→23:31)
[2017-03-28] MEDS ORDERED: MEASLES, MUMPS, RUBELLA VACCINE 0.5 ML VIAL SQ ONE (16:00)
[2017-03-28] MEDS ORDERED: DIPHTH/TETANUS/ACEL PERTUSSIS (BOOSTER) 0.5 ML VIAL/PFS IM ONE (16:00)
[2017-03-28 20:20] VITALS: BP 112/66; PULSE 68; RESP 18; TEMP 97.6
[2017-03-29] MEDS: oxyCODONE/ACETAMINOPHEN 5 MG/325 MG TAB PO PRN ×4 (01:03→14:24)
[2017-03-29] MEDS: diphenhydrAMINE HCL 50 MG/ML VIAL IV PUSH PRN (02:59)
[2017-03-29] MEDS: DOCUSATE SODIUM 50 MG/SENNA 8.6 MG TAB PO PRN (06:23)
[2017-03-29] MEDS: IBUPROFEN 600 MG TAB PO PRN ×2 (06:25→14:23)
[2017-03-29 08:05] VITALS: BP 107/61; PULSE 76; RESP 16; TEMP 98.1
[2017-03-29] MEDS ORDERED: NORE0.354 PO (08:52)
[2017-03-29] MEDS ORDERED: IBUP-232 PO (09:11)
[2017-03-29] MEDS ORDERED: SENN1TAB PO (09:11)
[2017-03-29] MEDS ORDERED: OXYC1TAB63 PO (09:11)
--- NOTE | 2017-03-29 09:12 | HHI.DCPOC ---
Discharge Care Plan Diagnosis: (1) delivery delivered Report Symptoms to Your Doctor -Temperature above 100.5 degrees -Redness, of incision or excessive or foul smelling drainage -Unusual pain or calf pain -Increased vaginal bleeding -Painful or difficulty urinating -Feelings of extreme sadness or anxiety after 2 weeks Goals to Promote Your Health * To prevent worsening of your condition and complications * To maintain your health at the optimal level Directions to Meet Your Goals Take your medications as prescribed Follow your dietary instruction Follow activity as directed Ensure plenty of rest for recovery Drink fluids for hydration Keep your appointments as scheduled Take your immunizations and boosters as scheduled If your symptoms worsen call your PCP, if no PCP go to Urgent Care Center or Emergency Room Smoking is Dangerous to Your Health. Avoid second hand smoke Call the 24-hour crisis hotline for domestic abuse at Tenzin Vasquez MD R2 Mar 29, 2017 09:11
--- NOTE | 2017-03-29 09:14 | HHI.OB ---
Subjective Remarks 26 year old female s/p repeat at 39 wks gestation, POD2. AFVSS. Patient reports she is feeling well. Bleeding is decreasing and pain is well- controlled. She is breast/formula feeding and bonding well with baby. Ambulating without difficulties. She is tolerating a diet without nausea or vomiting. She has not had a bowel movement. She has passed gas. Denies chest pain, dysuria, shortness of breath, or calf pain. Objective Vitals/I&O Vital Signs Date Time Temp Pulse Resp B/P (MAP) Pulse Ox O2 Delivery O2 Flow Rate FiO2 03/28/17 20:20 97.6 68 18 112/66 (81) 03/28/17 15:00 98.1 70 18 100/50 (67) Result Diagram: 03/28/17 0519 Objective Remarks GENERAL: Well-nourished, well-developed patient. CARDIOVASCULAR: Regular rate and rhythm without murmurs, gallops, or rubs. RESPIRATORY: Breath sounds equal bilaterally. No accessory muscle use. ABDOMEN/GI: Abdomen soft, non-tender, bowel sounds present. Incision: Clean, dry and intact. Fundus: Firm, non-tender at umbilicus. GENITOURINARY: Light to moderate bleeding. EXTREMITIES: No cyanosis or edema, non-tender, without signs of DVT. Medications and IVs Current Medications Medications (Trade) Dose Ordered Sig/Pamela Route Start Time Stop Time Status Last Admin (Xylocaine 1% Inj (50 ml)) 0.1 ml UNSCH X1 PRN I-DERMAL 03/27/17 15:00 03/30/17 14:59 (Bicitra Liq) 30 ml ASSISTANT TO THE DIRECTOR PO 03/27/17 15:00 03/31/17 14:59 (NS Flush) 2 ml BID IV FLUSH 03/27/17 21:00 (NS Flush) 2 ml UNSCH PRN IV FLUSH 03/27/17 18:45 (Percocet 5-325 Mg) 1 tab Q4H PRN PO 03/28/17 08:15 03/29/17 06:24 (Percocet 5-325 Mg) 2 tab Q4H PRN PO 03/28/17 08:15 03/28/17 10:42 (Benadryl Inj) 25 mg Q6H PRN IV PUSH 03/28/17 11:45 03/29/17 02:59 (Tylenol) 650 mg Q4H PRN PO 03/28/17 15:30 (Motrin) 600 mg Q6H PRN PO 03/28/17 15:30 03/29/17 06:25 (Americaine 20% Top Spr) 1 spray Q4H PRN TOPICAL 03/28/17 15:30 (Tucks Pads) 1 applic QID PRN TOPICAL 03/28/17 15:30 (Wendy-Colace) 2 tab Q12H PRN PO 03/28/17 15:30 03/29/17 06:23 (Ambien) 5 mg HS PRN PO 03/28/17 15:30 (Mag-Al Plus Susp Liq) 15 ml Q8H PRN PO 03/28/17 15:30 03/28/17 15:46 (Zofran Odt) 4 mg Q6H PRN PO 03/28/17 15:30 Assessment/Plan Assessment and Plan 26 yo female s/p repeat C/S, POD 2 - AFVSS - Continue routine care - Motrin and Percocet PRN pain - Encourage OOB - Pelvic rest x 6 wks. Will need 1 week incision check. - Contraception: OCPs-progestin only, start at 6 weeks - Anticipate D/C today Radha Amaya MD R1 Mar 29, 2017 09:14
--- NOTE | 2017-03-29 09:40 | PD.CIRC ---
Circumcision Procedure Note Procedure Date: Mar 29, 2017 Procedure Time: 09:39 Procedure: Circumcision Pre-procedure diagnosis: circumcision Post-procedure diagnosis: circumcision Informed Consent: The risks, benefits, indications, potential complications, and alternatives were explained to the patient/family and informed consent obtained. The baby was brought to the procedure room where a time-out was done to ID the patient and the procedure. Performing Physician: Farideh Acuna Anesthesia used: 1% lidocaine injected Type of block: ring block Device used: Mogen Description: The baby was prepped and draped in a sterile fashion. The procedure followed standard technique. The baby tolerated the procedure well without complication. Estimated blood loss: <5cc Specimen: Farideh Pretty MD Mar 29, 2017 09:40
== END 2017-03-29 17:44 | disposition home or self-care (01) | DRG 766 ==
LOC: HOBED 14:23 → H2EB 15:01 → H1EA 20:12
PROVIDERS: ADMIT Obstetrics & Gynecology; ATTEND Obstetrics & Gynecology
PROC: 10D00Z1 Extraction of Products of Conception, Low, Open Approach (ICD-10-PCS; principal; 2017-03-27)
DX: O32.1XX0 Maternal care for breech presentation, not applicable or unspecified (principal); Z37.0 Single live birth; O34.211 Maternal care for low transverse scar from previous cesarean delivery; Z3A.39 39 weeks gestation of pregnancy
CPT/HCPCS: 80307; 81001; 84112; 85025; 86850; 86900; 86901; 90715; G0481; J0131; J0690; J1200; J2270; J2590; J3010; J7040; J7120

== ENCOUNTER 2017-06-21 23:27 | Emergency (ER) | payer MEDICAID ==
[~2017-06-21] VITALS: Ht 154.9 cm; Wt 56.0 kg
[~2017-06-21 23:27] MED LIST changes: -AMPI500C8 PO; -BENA25CA4 PO; -BUTA1CAP PO; +DULC100C PO; +DULC10SU3 RECTAL; +HUMIBIDDM PO; +IBUP-232 PO; +NORE0.354 PO; +OXYC1TAB63 PO; +SENN1TAB PO; -TERC0.8C VAGINAL
[2017-06-21 23:29] VITALS: BP 106/61; PULSE 81; RESP 16; TEMP 97.7; O2SAT 100
[2017-06-22] MEDS ORDERED: IBUPROFEN 600 MG TAB PO ONE (00:15)
--- NOTE | 2017-06-22 00:34 | PD ---
HPI Chief Complaint: Medical Clearance Time Seen by Provider: 00:03 Travel History International Travel<30 days: No Contact w/Intl Traveler<30days: No Traveled to known affect area: No History of Present Illness HPI 26-year-old black female presents emergency Department with complains of worsening chronic back pain along with subjective headache, cough, myalgias and arthralgias. Some urinary increased frequency and dysuria. Patient states that she has had back pain after having a with her daughter several months ago. The remaining symptoms had started just a few days ago. She denies any nausea vomiting. No abdominal pain or pelvic pain. No rashes or lesions. Symptoms are moderate. No exacerbating or alleviating factors. PFSH Past Medical History Hx Anticoagulant Therapy: No ADHD: Yes Blood Disorders: No Weight (Kg): 3 Anxiety: Yes Depression: Yes Cancer: No Cardiovascular Problems: No Chemotherapy: No Cerebrovascular Accident: No Diabetes: No Diminished Hearing: No Headaches: No Psychiatric: Yes Respiratory: No Immunizations Current: Yes Migraines: Yes Seizures: No Thyroid Disease: Yes Ulcer: No Tetanus Vaccination: < 5 Years ?: Not LMP: 05/23/17 Menopausal: No : 2 Para: 1 Miscarriage: 1 : 0 Past Surgical History Abdominal Surgery: Yes (c-sec) Appendectomy: No Section: Yes (x2) Cholecystectomy: No Hysterectomy: No Other Surgery: Yes (C/S ) Social History Alcohol Use: No Tobacco Use: Yes Substance Use: Yes (MARIJUANA ) Allergies-Medications (Allergen,Severity, Reaction): Coded Allergies: lactose (Verified Adverse Reaction, Severe, 06/21/17) Reported Meds & Prescriptions Reported Meds & Active Scripts Active No Active Prescriptions or Reported Medications Review of Systems Except as stated in HPI: all other systems reviewed are Neg Physical Exam Narrative GENERAL: Well-developed, well-nourished in no apparent distress. Nontoxic appearing. HEAD: Normocephalic, atraumatic. EYES: Pupils equal round and reactive. Extraocular motions intact. No scleral icterus. No injection or drainage. ENT: Nose clear. Throat without erythema, tonsillar hypertrophy or exudate. Uvula midline. Airway patent. NECK: Trachea midline. Supple, nontender, moves head freely. No central bony tenderness or spasm. CARDIOVASCULAR: Regular rate and rhythm without murmurs, gallops, or rubs. RESPIRATORY: Clear to auscultation. Breath sounds equal bilaterally. No wheezes , rales, or rhonchi. GASTROINTESTINAL: Abdomen soft, non-tender, nondistended. No hepato-splenomegaly , or palpable masses. No guarding. EXTREMITIES: No clubbing, cyanosis, or edema. No joint tenderness. BACK: No central bony tenderness. Patient points of bilateral para lumbar tenderness. She sits up in bed at 90. No saddle anesthesia. Without deformity. No flank tenderness. NEUROLOGICAL: Awake, alert and oriented x 3 .Cranial nerves grossly intact. Motor and sensory grossly within normal limits. Normal speech. Data Data Last Documented VS Vital Signs Date Time Temp Pulse Resp B/P (MAP) Pulse Ox O2 Delivery O2 Flow Rate FiO2 06/21/17 23:29 97.7 81 16 106/61 (76) 100 Orders Orders Ua Includes Microscopic (06/22/17 00:06) Ed Urine Pregnancytest Poc (06/22/17 00:06) Influenzae A/B Antigen (06/22/17 00:06) Ibuprofen (Motrin) (06/22/17 00:15) MDM Medical Decision Making Medical Screen Exam Complete: Yes Emergency Medical Condition: Yes Medical Record Reviewed: Yes Differential Diagnosis Differential diagnoses: Acute back pain, chronic back pain, UTI, influenza, viral syndrome Narrative Course Patient given Motrin 600 mg by mouth. Patient Instructions: General Instructions Scripts No Active Prescriptions or Reported Meds Disposition: 01 DISCHARGE HOME Condition: Stable Anthony Rand Jun 22, 2017 00:34
[2017-06-22 00:55] LABS: BILIRUBIN, URINE NEG (NEG); BLOOD, URINE NEG (NEG); GLUCOSE,URINE NEG (NEG); KETONE, URINE NEG (NEG); MUCUS URINE FEW /lpf (OCC); NITRITE,URINE NEG (NEG); PH, URINE 6.5 (5.0-8.5); SQUAMOUS EPITHELIAL CELL URINE 3 /hpf (0-5); URINE COLOR YELLOW (YELLW/STRAW); URINE LEUKOCYTE ESTERASE TRACE (NEG)
[2017-06-22] MEDS ORDERED: DICL75TA PO (01:30)
== END 2017-06-22 01:59 | disposition home or self-care (01) ==
LOC: NEPD 23:27
DX: M54.9 Dorsalgia, unspecified (principal); G89.29 Other chronic pain; B34.9 Viral infection, unspecified; Z72.0 Tobacco use
CPT/HCPCS: 81001; 84703; 87804; 99283

== ENCOUNTER 2017-09-27 23:36 | Emergency (ER) | payer SELFPAY ==
[~2017-09-27] VITALS: Ht 154.9 cm; Wt 58.0 kg
[~2017-09-27 23:36] MED LIST changes: +DICL75TA PO; -DULC100C PO; -DULC10SU3 RECTAL; -HUMIBIDDM PO; -IBUP-232 PO; -NORE0.354 PO; -OXYC1TAB63 PO; -PREN1CHW7 PO; -SENN1TAB PO
[2017-09-27 23:48] VITALS: BP 128/60; PULSE 74; RESP 16; TEMP 98.6; O2SAT 100
[2017-09-28] MEDS ORDERED: CYCL5TAB PO (12:43)
== END 2017-09-28 00:33 | disposition left against medical advice (07) ==
LOC: NED 23:36
DX: M54.9 Dorsalgia, unspecified (principal)
CPT/HCPCS: 99281